=== PATIENT | male | born 1940 | race Caucasian/White ===

== ENCOUNTER 2016-08-04 12:12 | Inpatient (IN) | payer MEDICARE, BC ==
[~2016-08-04] VITALS: Ht 170.2 cm; Wt 67.2 kg
--- NOTE | ~2016-08-04 | DS ---
PATIENT'S NAME: ARCHIE JOHN [facility] AGE: 76 Y [address] ROOM: [id number] [place], [place] [address] LOCATION: [facility] ADMIT DATE: 08/04/2016 Discharge Summary DISCHARGE DATE: FAMILY PHYSICIAN: Reggie Reyes MD ATTENDING PHYSICIAN: Roberta oYst ANTICIPATED DATE OF DISCHARGE: 10/08/2016. FINAL DIAGNOSES: 1. Ischemic cerebrovascular accident, status post tPA with left parietal hemorrhage. 2. Left hemiplegia. 3. Essential hypertension. 4. Coronary artery disease. 5. Encephalopathy, secondary to stroke. 6. Insomnia. 7. C. diff colitis. CONSULTANTS ON THE CASE: 1. Dr. Malik. 2. Dr. Agrawal. HOSPITAL COURSE: Briefly, the patient was admitted to the Transitional Care Unit on the for further treatment of his recent stroke and hemiplegia. The patient was initially brought over on a statin; however, he experienced significant myalgias and it was held going forth. Occupational, Physical, and Speech Therapy continued to work with the patient noting significant progress towards the end of his stay. The patient did have some neuropathic pain and Neurontin was initiated. Lovenox was utilized throughout his stay for DVT prophylaxis. The patient was noted to have some thrush that was adequately treated with nystatin during his stay. The patient did have some hypotension and was given a saline bolus on 08/18/2016 and he rebounded without further repeat of this condition. The patient did have some hyperkalemia. EKG was done with sinus rhythm noted. The patient did have a diagnosis of C. diff on 08/19/2016 and was started on oral vancomycin. The patient did experience some confusion and hallucination and was started on Seroquel. This seemed to help significantly for his encephalopathy. The patient experienced some left shoulder pain. On the , Dr. Cabrera did consult and injected the shoulder, which seemed to resolve his problems. Dr. Agrawal did consult and felt that the patient would be an adequate candidate for inpatient rehab showing notable progress since his admission. After multiple discussions with the family regarding the patient's disposition, it was determined that the patient would transfer to inpatient rehab on 10/08/2016. DIAGNOSTICS: Laboratory data on September 29 sodium was 136, potassium 4.2, PATIENT'S NAME: ARCHIE JOHN [facility] AGE: 76 Y [address] ROOM: [id number] [place], [place] [address] LOCATION: [facility] ADMIT DATE: 08/04/2016 Discharge Summary DISCHARGE DATE: FAMILY PHYSICIAN: Reggie Reyes MD ATTENDING PHYSICIAN: Roberta Yost chloride 101, bicarb 26, glucose 94, BUN 22, creatinine 1.1, potassium went from 5.6, down to 4.6, and on down to 4.2 on September 29. White blood cell count on 08/11/2016 was 6.8, hemoglobin 11.7, hematocrit 35.5, platelets were 357, hemoglobin kentrell to 12.2 on September 21. Urinalysis on August 31 was negative for any pyuria or hematuria. Urine culture showed contaminants on August 31. Stool was positive for C. diff on 08/19/2016. DISCHARGE INSTRUCTIONS: The patient is discharged to inpatient rehab under the care of Dr. Agrawal. Dr. Malik and hospitalist will consult. Diet is regular. Activity is weightbearing as tolerated. Continue with occupational, physical, and speech therapies. The patient's rehab potential is fair. Discharge potential is fair. The patient and family are aware of his condition and prognosis on discharge. DISCHARGE MEDICATIONS: 1. Aspirin 81 mg daily. 2. Lovenox 40 mg daily. 3. Lisinopril 2.5 mg daily. 4. Protonix 40 mg daily. 5. Metamucil 1 packet twice daily. 6. Seroquel 25 mg at bedtime. 7. Flomax 0.4 mg daily. 8. Keppra 500 mg twice daily. 9. Tylenol 650 mg rectally every 4 hours as needed. 10. Tylenol 650 mg every 4 hours as needed. 11. [place] 5/325 1 tablet every 6 hours as needed. 12. Artificial Tears ointment apply small amount to the eyes as needed. 13. Dulcolax suppository 10 mg rectally daily p.r.n. 14. Anusol HC suppository 1 at bedtime p.r.n. 15. Anusol HC cream applied to rectal area 3 times daily as needed. 16. Milk of mag 30 mL daily p.r.n. 17. Nitroglycerin 0.4 mg sublingual as needed for chest pain. 18. Seroquel 12.5 mg p.o. every 12 hours as needed for confusion or agitation. 19. Spiro nasal spray 2 sprays to each nostril as needed. 20. Swim-EAR drops 3-4 drops to the affected ear as needed for pain. We do appreciate participating in this patient's care and thank you very much for the ability to serve him while hospitalized at [facility]. Time spent coordinating details of discharge was 37 minutes of which was spent coordinating with consulting physicians and Care Management, completion of medication reconciliation, and education to the patient and family on the above mentioned diagnoses. PATIENT'S NAME: ARCHIE JOHN [facility] AGE: 76 Y [address] ROOM: [place] [address] LOCATION: [facility] ADMIT DATE: 08/04/2016 Discharge Summary DISCHARGE DATE: FAMILY PHYSICIAN: Reggie Reyes MD ATTENDING PHYSICIAN: Roberta Yost NATALI SANTIAGO FOR ANABELL BANUELOS MD MARGUERITE/modl /[id number] d: 10/08/16 0350 t: 11/03/16 0423, DISCHARGE SUMMARY
--- NOTE | ~2016-08-04 | CON ---
PATIENT'S NAME: ARCHIE JOHN [facility] AGE: 76 Y [address] ROOM: [place] [address] LOCATION: [facility] ADMIT DATE: 08/04/2016 Consultation DISCHARGE DATE: FAMILY PHYSICIAN: Reggie Reyes MD ATTENDING PHYSICIAN: ANNI SEPULVEDA REFERRING PHYSICIAN: Deb Malik MD ORTHOPEDIC CONSULT CHIEF COMPLAINT: Left shoulder pain. HISTORY: This 76-year-old male has had a 5-year history of pain and stiffness in his left shoulder. It has been much worse the past week. He is currently on rehab, receiving physical therapy, recovering from a hemorrhagic stroke with left hemiplegia. Pain is dull and achy, radiates out of the deltoid. Hurts when his arm is moved, although he can not do much passively. When others move it, it hurts. Occupational Therapy has been working with the shoulder but can not do too much as long as it hurts. PAST MEDICAL HISTORY: Left carotid artery disease, coronary artery disease, essential hypertension, elevated cholesterol. SURGICAL HISTORY: Cholecystectomy, CABG. SOCIAL HISTORY: Lives with his of 58 years. No smoking or alcohol use. FAMILY HISTORY: Mother in her 90s of old age and Alzheimer's dementia. Father in his 80s from heart trouble. CURRENT MEDICATIONS: He takes: 1. Aspirin 81 mg daily. 2. Flomax. 3. Keppra. 4. Lovenox. 5. Metamucil. 6. Nystatin. 7. Prinivil. 8. Protonix. 9. Seroquel. PATIENT'S NAME: ARCHIE JOHN [facility] AGE: 76 Y [address] ROOM: [place] [address] LOCATION: [facility] ADMIT DATE: 08/04/2016 Consultation DISCHARGE DATE: FAMILY PHYSICIAN: Reggie Reyes MD ATTENDING PHYSICIAN: ANNI SEPULVEDA 10. Lacri-Lube. 11. Nitrostat. 12. [place]. 13. Nasal spray. 14. Tylenol. ALLERGIES: HE REPORTS AN ALLERGY TO TITANIUM. REVIEW OF SYSTEMS: No recent coughs, colds, fevers, chills, or sore throats. No chest pain, shortness of breath, or trouble breathing. No nausea, vomiting, diarrhea, or constipation. No dysuria, hematuria, hesitancy, incontinence. He is constipated. He is little depressed from the stroke. No skin changes. No auditory or visual hallucinations. PHYSICAL EXAMINATION: GENERAL: He is awake, alert, and oriented x3. Mood and affect appropriate. VITAL SIGNS: Blood pressure is 152/74, respirations 16, temperature 98, pulse 74 and regular. HEENT: Atraumatic, normocephalic. PERRL. EOMI. TMs clear. Throat clear. No loose teeth. NECK: Supple, nontender. CHEST: Clear to auscultation. HEART: Regular rhythm. ABDOMEN: Soft, nontender without masses. EXTREMITIES: He has full active range of motion of right shoulder, hip, and knee. No active motion of the left shoulder, elbow, or hand. Minimal use of left lower extremity. He has mild tenderness in the subacromial area. Passive abduction and flexion are 80 degrees in the left shoulder with pain. There is some crepitus. RADIOLOGY DATA: X-rays of the left shoulder show degenerative arthritis. IMPRESSION: 1. Rotator cuff arthropathy, left shoulder. 2. Hypertension. 3. Coronary artery disease. 4. Status post hemorrhagic stroke with left hemiplegia. 5. Depression. 6. Dyslipidemia. PLAN: Risks and benefits were discussed with the patient and his . Time-out was PATIENT'S NAME: ARCHIE JOHN [facility] AGE: 76 Y [address] ROOM: [place] [address] LOCATION: [facility] ADMIT DATE: 08/04/2016 Consultation DISCHARGE DATE: FAMILY PHYSICIAN: Reggie Reyes MD ATTENDING PHYSICIAN: ANNI SEPULVEDA. Left shoulder was sterilely prepped and injected into the subacromial space and glenohumeral joint with 80 mg Depo-Medrol, 5 mL 1% lidocaine. He may continue with occupational therapy for the left shoulder. Take Tylenol for pain. I will follow him along and see how he responds to the injection. MD EMMANUEL PATE/brandy /[id number] d: 09/14/16 2220 t: 09/29/16 1003, CONSULTATION REPORT
--- NOTE | ~2016-08-04 | DS ---
PATIENT'S NAME: ARCHIE JOHN [facility] AGE: 76 Y [address] ROOM: [address] [place] [address] LOCATION: [facility] ADMIT DATE: 07/23/2016 Discharge Summary DISCHARGE DATE: 08/04/2016 FAMILY PHYSICIAN: Reggie Reyes MD ATTENDING PHYSICIAN: Zoila Cid ATTENDING PHYSICIAN ON THE DAY OF TRANSFER: Roberta Yost M.D. CONSULTING PHYSICIANS: 1. Deb Malik M.D., Neurosurgery. 2. Som Agrawal M.D., Physiatry. DISCHARGE DIAGNOSES: 1. Ischemic cerebrovascular accident status post tPA. 2. Parietal lobe hemorrhage status post evacuation. 3. Hypertension, essential. 4. Left-sided hemiplegia. 5. Coronary artery disease. 6. Chronic shoulder and hip pain. 7. Anxiety. 8. Dyslipidemia. DISCHARGE MEDICATIONS: 1. Hydrochlorothiazide 12.5 mg p.o. q.a.m. 2. Lisinopril 20 mg p.o. q.a.m. 3. Artificial Tear ointment to left eye p.r.n. dry eye. 4. ASA 81 mg p.o. daily. 5. Levetiracetam 500 mg p.o. b.i.d. 6. Lisinopril 5 mg p.o. daily. 7. Nystatin swab to affected area t.i.d. 8. Protonix 40 mg p.o. daily. 9. Flomax 0.4 mg p.o. q.p.m. 10. Ambien 5 mg p.o. q.h.s. 11. Tylenol 650 mg rectally q.4 hours p.r.n. pain or fever. 12. [place] 5/325 mg one tab every 6 hours p.r.n. pain. 13. Milk of magnesia 30 mL p.o. b.i.d. p.r.n. constipation. 14. Nitroglycerin 0.5 mg sublingually as needed p.r.n. chest pain. PROCEDURES: Right frontal craniotomy and evacuation of intracranial hemorrhage on July 23, [address] Malik. Please see his op note for more detailed review. PERTINENT LABORATORY DATA: Lipid panel drawn on July 24, 2016 showed cholesterol of 223, triglycerides of 150, HDL 53, VLDL 30, LDL 140. The patient initially had some acute kidney injury with a GFR of 42, which recovered nicely to greater than 60 by July 25, 2016. Creatinine on PATIENT'S NAME: ARCHIE JOHN [facility] AGE: 76 Y [address] ROOM: [place] [address] LOCATION: [facility] ADMIT DATE: 07/23/2016 Discharge Summary DISCHARGE DATE: 08/04/2016 FAMILY PHYSICIAN: Reggie Reyes MD ATTENDING PHYSICIAN: Zoila Cid admission was 1.6 which drifted downward to a gustavo of 1.0. Electrolytes were really unremarkable throughout his hospitalization. Hemoglobin at admission was 13.7 which drifted down to the gustavo of 10.4. HOSPITAL COURSE: Please refer to the admitting dictation by Dr. Cid for more detailed outline of the patient's presentation, and also review the consultation notes from Dr. Agrawal along with Dr. Simon, Neurology, and also Dr. Malik, Neurosurgery. The patient presented to the local ER with hemianopsia on the left eye as well as left leg weakness within [address] onset[address] Dr. Simon was then notified and discussed, and the patient did receive tPA at that facility. He was then sent to a higher level of care for his post tPA and stroke-like symptoms. The patient did have some mild weakness on the left upon presentation to our facility. Dr. Simon of course was consulted. The patient does have essential hypertension and our goal initially was permissive hypertension less than 180 and the patient was started on normal saline given his acute kidney injury upon admission. Shortly after Dr. Simon seeing the patient 15 to 20 minutes, the patient developed worsening weakness in the left upper extremity and complete left eye hemianopsia and some slight facial droop. A MRI was obtained at that point which showed interval development of a large round area of acute hemorrhage at the right parietal lobe, associated mass effect was seen. The patient underwent a craniotomy with Dr. Malik on July 23, 2016. MRI was repeated on July 24, 2016 and showed the changes in the right frontal craniotomy and partial evacuation of the large right frontal parietal hematoma. The patient also had insertion of the ICP monitor at the time of craniotomy. The patient was in ICU and clinical care helped manage the patient there. The patient was given p.r.n. IV hydralazine and labetalol for systolic blood pressures greater than 160. The patient was placed on Keppra 500 mg p.o. b.i.d. for seizure prophylaxis. Dr. Quach assisted in his care in the ICU unit. He helped to manage time in the ICU and vent management. A Dobhoff was ultimately placed on July 25, 2016. Dr. Golden also helped care for the patient in ICU assuming care from Dr. Quach. There was concern for DVT and therefore a lower extremity Doppler was checked which was indeed negative. Ultimately the patient was extubated stable and okay to transition to neurotrauma on July 28, 2016. The patient continued on tube feedings at that point, and therapies began to work with the patient. The patient did have some leukocytosis and procalcitonin were monitored which never were impressively elevated. The patient was covered with Zosyn from July 28, 2016 to July 30, 2016. As his white count had bumped to 14.8. The patient continued to slowly improve. The Zosyn was ultimately discontinued on July 30, 2016. The patient was also on Florastor for GI prophylaxis. Speech therapy eval with a modified barium study. The patient did have episodes of anxiety during the overnight stages where he would wake up, and be anxious to visit with his . Ativan 0.25 mg were used very sparingly, which did seem to make him slightly sedated. PATIENT'S NAME: ARCHIE JOHN [facility] AGE: 76 Y [address] ROOM: [address] [address] LOCATION: [facility] ADMIT DATE: 07/23/2016 Discharge Summary DISCHARGE DATE: 08/04/2016 FAMILY PHYSICIAN: Reggie Reyes MD ATTENDING PHYSICIAN: Zoila Cid The patient continued to improve and ultimately was upgraded to a soft mechanical food, thin liquid diet on August 02, 2016 following MBS. We continued to work on blood pressure management. The patient did have a complaint of chronic discomfort in his bilateral shoulders and low back and hips. Again this is not new. [place] 5/325 mg one tab every 6 hours was given and seemed to be effective for this. The Dobhoff was ultimately discontinued on August 03, 2016 as the patient was taking in oral. The patient also complained of getting up to void throughout the night which is also chronic, Flomax was initiated on August 03, 2016. Lisinopril was bumped slightly from 20 mg to 25 mg daily on August 03, 2016 and the patient was able to transfer to the TCU Unit on August 04, 2016 to continue with therapies with the ultimate goal of becoming a rehab candidate. Dr. Agrawal assessed the patient while here and will be following along in assessing intermittently for when the time may be appropriate. On the day of discharge, the patient's vital signs were stable. Temp was 98.0, pulse was 84, respirations 16, blood pressure was 116/58, and he was 95% on room air. The patient was up to the chair on the day of discharge, did have left hemiplegia. His chest was clear to auscultation. He had regular rhythm and rate cardiovascularly. His abdomen was soft and nontender. He was stooling. Extremities had no edema nor calf tenderness. The patient did have foot drop boots in place. Niya were also removed from the craniotomy site on the morning of August 04, 2016. The patient is discharged to the Transitional Care Unit where he will continue on his current diet of thin liquids, mechanical soft food, meds with applesauce. He should continue with OT, PT, and Speech Therapy. O2 may be used to keep sats greater than 90% as needed. He will be followed by the Hospitalist Service along with Dr. Malik in terms of Neurosurgery, Dr. Simon in terms of Neurology, and Dr. Agrawal. This discharge took greater than 35 minutes along with coordination of his care on the day of his discharge. DEBBIE STANTON PA-C FOR MD SAMANTHA STRATTON/brandy /[id number] PATIENT'S NAME: ARCHIE JOHN [facility] AGE: 76 Y [address] ROOM: [address] [address] LOCATION: [facility] ADMIT DATE: 07/23/2016 Discharge Summary DISCHARGE DATE: 08/04/2016 FAMILY PHYSICIAN: Reggie Reyes MD ATTENDING PHYSICIAN: Zoila Cid CC: MD Som Albright MD Jason R Mallin, MD Adeleke E Badejo, MD d: 08/05/16 0118 t: 10/11/16 1451, DISCHARGE SUMMARY
[~2016-08-04 12:12] MED LIST: ACTIGALL300 M1 PO; ASPIRIN EC81 MG PO; LISINOPRIL-HCT1 EAC1 PO; NITROSTAT0.4 MG SL; NORCO 5-325 MG1 TAB PO
--- NOTE | 2016-08-04 19:16 | NUR ---
D: Nursing admission I: Nursing interventions provided to support the patient's individual plan of care R: MOBILITY-- full lift, staff to reposition q 2 hours, wedge and pillows NUTRITION-- soft diet thin liqhids, crush meds applesauce SKIN/INCISIONS/WOUNDS-- top of head, incision healing cindy out SELF CARES-- staff to provide all cares BOWEL/BLADDER-- appears to have some continence bowel and bladder RESPIRATORY-- no oxygen in use PAIN-- chronic right neck and shoulder PSYCHOSOCIAL-- pleasent and cooperative COGNITION-- oriented x3 SPECIAL NEEDS-- leg pumps and foot drop boots, edema glove left hand BLEEDING-- no anticoagulants upon admission- hemmoragic and ischemic stroke SENSORY IMPAIRMENTS/DENTAL NEEDS: left eye visual decreased. own teeth TEACHING NEEDS-- INFECTION CONCERNS:none RISK FOR ELOPEMENT: none NEED FOR BED/MOVEMENT ALARM:yes DISMISSAL PLANS: ? Other: P: Current plan of care reviewed and updated 08/04/16 Serina Yeh rn
--- NOTE | 2016-08-05 02:02 | NUR ---
Significant Event: A/Ox3. VSS. 2A full lift. 1:1 assistance with eating: soft diet and think liquids. Medications need to be crushed in applesauce. L)side flaccid. Head incision open to air. [place] at hs. Frequent repositioning with wedge pillow. Follow up:
--- NOTE | 2016-08-05 13:51 | NUR ---
Significant Event: Patient alert. Up with 2 assist. Left side is weak. Left facial droop. Incision to head is healed. Sling on to left upper extremity with transfers. Needs assistance with meals. Medications with applesauce. at bedside. Follow up:
--- NOTE | 2016-08-05 16:22 | NUR ---
A/O x 3. L side facial droop. Gag reflex intact. States he is unable to focus eyes and see me. +Nystagmus greater on the R eye, sluggish but +nystagmus on the L eye. Meds given with applesauce. 1 on 1 with all meals. L side flaccid. SCD's for VTE. Mechanical soft diet. Thin liquids. No edema. Fatigued easily. [place] response is sometimes slow but is mostly clear and not slurred for me today. No abrupt sudden abnormal responses or behavior. Continent of B/B.
--- NOTE | 2016-08-06 01:05 | NUR ---
Significant Event: Became confused at bedtime. Stated he did not know where he was or where his was. Reoriented. L) side flaccid with a left facial droop. Slow to answer questions. Repo q 2 hrs. Foot drop boot to L) leg. Incontinent of bowel and bladder. SL to R) arm. [place] and tylenol given for c/o neck and back pain. K-pad used for additional relief. Meds given crushed in applesauce. VSS. Afebrile. Pleasant and cooperative w/ cares. Follow up:
--- NOTE | 2016-08-06 11:32 | NUR ---
76 y/o [place] from [place] admitted to TCU on 08-04-16 for continued OT/PT/ST post dx of r) front ICH. He had surgery on 07-23-16 to evacuate the hematoma. Patient is followed by , , and hospitalists. 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 They have one adopted son who is 46 y/o and lives in [place]. states they have 4 grandchildren, with one of them being adopted from [place]. patient has medicare and a supplementla policy. SW reviewed how medicare coverage works on acute care, TCU/SNF and inpatient rehab. acknowledged understanding. She states they do have a LTC policy and their son is looking for it. Explained to if they have an elimination period for their LTC policy, TCU days could go toward the elimination period, once they initiaite a claim. patient currently is a 2 assist, full lift. He is 1:1 with meals, mechanical soft diet. L) side is flacid. wears an edema glove on L) hand and foot drop boots. KPAD to lower back. at team meeting yesterday, we estimated at least a month on TCU with eventual d/c goal to transfer to Inpatient Rehab at [facility].
--- NOTE | 2016-08-06 17:53 | NUR ---
Significant Event: Patient alert but forgetful. 2 assist full lift. Has chronic back and hip pain. Meds with applesauce 1 at at time. Left side is flaccid. Left edema glove. Foot drop boots. Incontinent of urine. Taking [place] for pain. Has left facial droop. at bedside. Follow up:
--- NOTE | 2016-08-07 05:09 | NUR ---
Significant Event: AT 0453, PATIENT GIVEN NORCO TAB ONE FOR BILATERAL HIPS DISCOMFORT RATE AT A 8. BEEN REPOSITIONED. Follow up:
--- NOTE | 2016-08-07 15:46 | NUR ---
Significant Event: Alert/oriented. Forgetful at times. Slow to follow tasks/answer questions. q2 turns when in bed. Left side flaccid, edema glove put on this am. Incontinent of urine. MOM and suppos given today, no results so far. Follow up:
--- NOTE | 2016-08-08 14:29 | NUR ---
Significant Event: Alert to person and place. Confused at times. Repo q 2 hrs. Up in chair for breakfast. Has c/o pain to buttocks when up. norco 1 tab given for pain. Resting comfortably after interventions. IV SL. meds given crushed in applesauce. helped to eat meals. Has had family at bedside t/o the day. Pleasant and cooperative w/ cares. Follow up:
--- NOTE | 2016-08-09 04:58 | NUR ---
A/O x 3. Pleasant. Cooperative. Spouse at bedside till 2129. C/O back pain and L hip pain. Medicated as per orders. Bed bath completed. Turn q 2 hr. Medications crushed and put in applesauce. Watch for pocketing which patient does frequently. [place] water protocol in progress. SCD's in use. Incontinent of B/B. L side flaccid. AFO boots on at HS. Medicated for pain this morning for c/o of L hip pain.
--- NOTE | 2016-08-09 17:40 | NUR ---
Significant Event: Follow up: Patient remain resting in bed all day, turned q2 hours by staff. Incontinent of urine, moisture cream to bottom. Medications crushed and used with applesauce. Soft foods with nectar thick liquids, thin liquids between meals. norco last 1700. left side flaccid. family at bedside , assisting patinet with eating.
--- NOTE | 2016-08-10 04:38 | NUR ---
Significant Event: Pt a/o x 3, cooperative, forgetful. C/o l) hip pain; pain relief noted after Ambien given at HS. Meds crushed in applesauce. Turns q 2 hrs. Foot drop boots and pneumatic devices on at HS. Follow up:
--- NOTE | 2016-08-10 10:55 | NUR ---
Significant Event: Cares performed from [id number]. Alert. Confused at time. Was very tired this am. had to encourage to take medications. Pills crushed in applesauce. IV SL. [place] given PRN pain. UP with full lift. Incontinent of bowel and bladder. Repo q 2 hrs. Pleasant and cooperative w/ cares. Follow up:
--- NOTE | 2016-08-10 14:10 | NUR ---
brought in LTC policy. 60 day elimination period, covers $200 per day, unlimited lifetime. [facility] [address] [address] [facility] [place] [address] fax [phone] SW began claim form and gave to daughter in law as left to get some fresh air. Family aware to submit policy, once he is discharged from TCU and # of SNF days known. Phone # for business office to obtain an itemized monthly statement from TCU left with claim form and family aware they will need to call to get an itemized copy of bill, and then mail off with the claim form, plan of care, OT/ST notes and admit orders.
--- NOTE | 2016-08-11 02:47 | NUR ---
Significant Event:ALERT TO SELF, DISORIENTED TO TIME/PLACE, EASILY REORIENTED. NO IV ACCESS, UP WITH TWO ASSIST, FULL LIFT. L) SIDED WEAKNESS. MEDS CRUSHED IN APPLESAUCE. EDEMA GLOVE TO L) HAND AT ALL TIMES, ELEVATE ON PILLOW. PRN NORCO AT 2101. TURN Q 2HOUR, INCONTINENT OF URINE, MOISTURE BARRIER CREAM APPLIED. NECTAR THICKENED LIQUIDS. PLEASANT AND COOPERATIVE WITH CARES. Follow up:
[2016-08-11 05:36] LABS: BASOPHIL # 0.1 K/uL (0.0-0.2); BASOPHIL % 0.7 %; EOSINOPHIL # 0.4 K/uL (0.0-0.5); EOSINOPHIL % 5.9 %; HEMATOCRIT 35.5 % (37.0-53.0); HEMOGLOBIN 11.7 g/dL (11.0-16.0); IMMATURE GRANULOCYTE % 0.3 %; LYMPHOCYTE # 2.2 K/uL (0.8-4.0); LYMPHOCYTE % 31.7 %; MCH 32.2 pg (27.0-34.0); MCV 97.8 fl (83.0-98.0); MONOCYTE # 0.8 K/uL (0.0-1.0); MONOCYTE % 11.3 %; MPV 9.8 fl (9.4-12.4); NEUTROPHIL # (ANC) 3.4 K/uL (1.4-9.0); NEUTROPHIL % 50.1 %; NRBC % 0 /100WBC (0-0.00); RBC 3.63 M/uL (3.50-5.50); RDW-CV 12.5 % (11.9-14.6); WBC 6.8 K/uL (4.0-11.0)
[2016-08-11 05:43] LABS: PLATELET COUNT 357 K/uL (150-450)
[2016-08-11 05:51] LABS: ALBUMIN 3.1 gm/dL (3.5-5.0); CALCIUM 8.7 mg/dL (8.5-10.5); CREATININE 2.4 mg/dL (0.6-1.3); PHOSPHORUS 4.4 mg/dL (2.5-4.9)
[2016-08-11 05:52] LABS: MAGNESIUM 2.7 mg/dL (1.3-2.6)
--- NOTE | 2016-08-11 16:26 | NUR ---
Significant Event:A/0 X 3, C/O HIP PAIN- RELIEF WITH REPOSITIONING AND MEDICAITON, PT/OT/ST SERVICES, SODIUM LOW THIS AM 132- *NEW ORDER FLUID RESTRICTION 1500 RECHECK BMP IN AM*, FULL LIFT TRANSFERS, COMMODE FOR BM, AND GRANDAUGHTER AT BEDSIDE, PILLS CRUSHED IN APPLESAUCE, Follow up:
--- NOTE | 2016-08-12 02:56 | NUR ---
Significant Event:A/O some forgetfulness.2a/FL. Turn q2H. Left side flaccid. Foot drop boots on bilaterally. Calf pumps bilaterally on. Edema glove removed at HS, washed. Hands cleansed and lotioned. Aloe to buttocks/rectal area with cares. BMs this shift. Some incontinence of bladder. Fluid restriction of 1500ml/day. Meds crushed in applesauce. Call button within reach, clipped to pocket of gown. Miralax initiated this shift. [place] @ 1942; relief noted. Follow up:
[2016-08-12 04:56] LABS: CALCIUM 8.7 mg/dL (8.5-10.5); CREATININE 2.5 mg/dL (0.6-1.3)
--- NOTE | 2016-08-12 11:17 | NUR ---
Significant Event: ALERT/ ORIENT X 3, C/O HIP PAIN WHEN UP FOR TOO LONG. INC B/B. EDEMA GLOVE TO L)HAND, NETO HOSE TO BILATERAL LEGS, GAVE 1 NORCO AT 0800 FOR PAIN. FULL LIFT TRANSFERS, USES BEDSIDE COMMODE, SODIUM THIS AM 131. 2000ML FLUID RESTRICTION, FOOT DROP BOOTS WHILE IN BED, BILATERAL LEG PUMPS, L)SIDE FLACID. *NEW ORDER TODAY FOR NYSTATIN SWISH AND SPIT FOR THRUSH. QID FOR 10 DAYS.* AT BEDSIDE. PT/OT/ST SERVICES. Follow up:
--- NOTE | 2016-08-13 02:31 | NUR ---
Significant Event:PT IS A & O, UP WITH FULL LIFT. IS ON 2000ML FLUID RESTRICTIONS. LEFT SIDE IS FLACCID. MEDS CRUSHED IN APPLESAUCE, USES A STRAW TO SUCK UP LIQUID MEDS. NO IV ACCESS. TOOK A [place] @ 2042. VSS ON RA Follow up:
--- NOTE | 2016-08-13 12:02 | NUR ---
this week teams meeting indicate patient making progress. worked in the w/c with OT. Needs extra time and cues to process but making progress. 1999 fluid restriction diet. soft diet. start nystatin this week. continue with OT/PT/ST and eventual d/c plan to [facility].
--- NOTE | 2016-08-13 19:37 | NUR ---
Significant Event: Follow up: UP to chair with therapy, back to full lift by nursing. Dr Cordero changed several medications due to low BP today. given norco this afternoon for c/o hip pain. Many family members visited this afternoon and patient is very tired afterwards. assisting to feed patient. Eats very poorly.
--- NOTE | 2016-08-14 05:21 | NUR ---
Confused to time. Short term memory deficit noted greater tonight. States worried about spouse and that he had not seen her all day but spouse has been with patient all day with mx visitors until 2029. Medicated for pain at HS per patient c/o pain. Total care. Turn q 2hr. Rested well.
--- NOTE | 2016-08-14 15:44 | NUR ---
Significant Event:A/O. 2A/FL. Left side flaccid, left mouth droop. Calf pumps and foot drop boots. [place] @ 1205 for hip pain, relief noted. Turn Q2H. at bedside. Thin liquids in between meals. Thick liquids with meals. Meds crushed and given in applesauce. Call light within reach. Follow up:
--- NOTE | 2016-08-15 02:41 | NUR ---
Significant Event: Alert & oriented. rt side is flaccid. Takes meds crushed in applesauce. Has bilateral foot drop boots. Turn every 2 hrs. Has bilateral calf pumps. VSS. Had [place] @ 1925. Incontinent at night. Has lt side mouth droop. Has thickened liquids with meals only and a 2000 ml fluid restriction. Follow up:
--- NOTE | 2016-08-15 05:32 | NUR ---
Pt requests bilateral foot drop boots off. Boots removed.
--- NOTE | 2016-08-15 12:41 | NUR ---
Significant Event: Alert and oriented. Forgetful at times. UP with full lift. Repo q 2 hrs in bed. Incontinent of urine. Did c/o of feeling constipated today. Last BM on 08/12. MOM given. Passing gas, but no BM as of yet. NO IV access. Pills given crushed in applesauce. [place] given for pain. Nystatin swishes and Diflucan given for thrush. at bedside t/o shift. Pleasant and cooperative w/ cares. Follow up:
--- NOTE | 2016-08-16 01:16 | NUR ---
Significant Event: Alert & oriented. Speaks slowly. Lt side flaccid. Turns every 2 hrs. Had 2 bm's last night, a large and small so far. Still needs MOM. I could feel stool high up. Needs meds crushed in applesauce. Wears calf pumps. Continues with nystantin swish . VSS. Wears TEds. Takes NOrco for pain. Incontinent of bowel & bladder on nights. Follow up:
--- NOTE | 2016-08-16 14:27 | NUR ---
Significant Event: Alert and oriented. Forgetful at times. UP w/ full lift. Working on 2 assist pivot w/ therapy. Left side flaccid. Edema glove to left hand. Patient was very tired this am. Did have norco prior in early am. BP 91/48. C/o constipation. MOM and supp repeated today. Did have 2 mushy bms today. Also some liquid stool noted. Cont on nystatin and diflucan for thrush. Meds crushed in applesauce. Pleasant and cooperative w/ cares. Follow up:
--- NOTE | 2016-08-17 01:18 | NUR ---
Significant Event: Alert & oriented. Lt side of body is flaccid and unable to move. He is pleasant & cooperative. is very involved with his cares. He had hyperbowel sounds last night. BP was 108/62. He wears NETO hose/leg pumps. He had Tylenol @ 1900 for a headache. Meds are crushed and given in applesauce. PT is working with him. Incontinent & wears briefs. His helps him with the urinal @ x's during the day. Follow up:
[2016-08-17 07:16] LABS: ALBUMIN 3.1 gm/dL (3.5-5.0); CALCIUM 8.8 mg/dL (8.5-10.5); CREATININE 3.4 mg/dL (0.6-1.3); PHOSPHORUS 4.7 mg/dL (2.5-4.9)
[2016-08-17 07:22] LABS: ANION GAP 14.6 (10.0-19.0); MAGNESIUM 3.3 mg/dL (1.3-2.6); POTASSIUM 5.6 mMol/L (3.7-5.1)
--- NOTE | 2016-08-17 17:10 | NUR ---
Significant Event: Patient alert and oriented and is slow to respond to questions at times. L) side of body flaccid. at bedside and assists with cares. [place] 1 tab given at 0737 for c/o L) hip discomfort and Tylenol 650 mg given at 1509 for back discomfort. Patient c/o urge to have a BM and only had a tsp of loose stool this afternoon. BP was 88/45 this morning and his Lisinopril was held. Na+ level at 130 and patient remains on a fluid restriction. Patient had an 500 ml in orally. Follow up:
--- NOTE | 2016-08-18 02:07 | NUR ---
Significant Event: Alert and oriented with some confusion at HS. Slow to respond to questions at times. Left side of body is flaccid and unable to move. Calm and cooperative with cares. Wears NETO hose and SCDs. assist with cares. [place] given at 2010 for C/O pain to left hip with good results. Takes medication crushed in applesauce. Incontinent of B&B. Will ask for and use urinal occasionally. Follow up:
--- NOTE | 2016-08-18 15:38 | NUR ---
Significant Event:A/0 X 3, FULL LIFT TRANSFERS, PT/OT SERVICES- LABS SODIUM 130, POTASSIUM 5.6, *NEW ORDERS EKG, TELEMETRY FOR 24 HOURS, NS 500ML BOLUS THEN 125ML/HR X 8 HOURS THEN 50ML/HR, LABS BMP,MAG AT 1700- CALL RESULTS, RENAL/MAG IN AM, HOLD PRINIVIL. C/O HIP PAIN, USING TYLENOL ONLY FOR PAIN D/T DROWSINESS WITH NORCO- GOOD PAIN CONTROL, AT BEDSIDE, 2000FR, MECHANICAL SOFT DIET, MEDS CRUSHED IN APPLESAUCE. Follow up:
[2016-08-18 17:17] LABS: CALCIUM 8.3 mg/dL (8.5-10.5); CREATININE 1.8 mg/dL (0.6-1.3); MAGNESIUM 2.6 mg/dL (1.3-2.6)
[2016-08-18 17:18] LABS: ANION GAP 14.6 (10.0-19.0); POTASSIUM 4.6 mMol/L (3.7-5.1)
--- NOTE | 2016-08-19 03:56 | NUR ---
Alert. Easily disoriented when leaves for the night. Reoriented mx times. Pleasant. Cooperative. Incontinent of stool x 4. Total care. Turn q 2 hrs. AFO boots on at HS. SCD's on at HS. Medication crushed and put in applesauce because of cheeking of pills and inablility to feel pills on L side of mouth. IVF's infusing at 125ml/hr decreased per orders to 50ml/hr as per MD order. Rested poorly per the frequent BM's and large incontinent voids.
[2016-08-19 07:39] LABS: CALCIUM 8.5 mg/dL (8.5-10.5); CREATININE 1.2 mg/dL (0.6-1.3); MAGNESIUM 2.4 mg/dL (1.3-2.6); PHOSPHORUS 2.5 mg/dL (2.5-4.9)
--- NOTE | 2016-08-19 17:39 | NUR ---
Significant Event:Up in chair with lift. Tylenol given at 1315 per request for restlessness. IV saline locked. Incontinent of urine and bowel. 6 stools today. C diff positive. Placed in isolation. informed. Telemetry dc'd. VSS. Left side flaccid. Avoid eye contact on left side at times. Patient is confused. 1999 fluid restriction. at bedside assist with cares.
--- NOTE | 2016-08-19 18:02 | NUR ---
TCU TEAM MEETING PATIENT PROGRESSING, RECEIVING OT/PT/ST. HAD LABWORK YESTERDAY WITH SOME ABNORMAL LABS PER NURSING. DID AN EKG, TELE, NS BOLUS. NURSING TO F/U WITH HOSPITALISTS TO SE IF PATIENT NEEDS TO BE ON FLUID RESTRICTION IF HE REQUIRED IV FLUIDS YESTERDAY. DID NOT SLEEP WELL LAST NIGHT PER THERAPY AND . WORKED ON HAVING A BM AND THEN ALL HIS MEDICAL TESTS YESTERDAY, STATES HE IS TIRED TODAY. CONTINUE ON TCU WITH EVENTUAL D/C PLAN FOR INPATIENT REHAB.
--- NOTE | 2016-08-20 04:27 | NUR ---
A/O x 3. Pleasant. Cooperative. Anxious most of the evening especially after leaves unit. Total care. Turn q 2 hr. Occassionally incontinent of B/B. Medicated for pain of L shoulder and Lower back per request. Isolation for C-diff continued. Rested poorly. Frequently having to re-orient to time and let him know what time his will be back. Patient states that he is afraid at night and is scared but he does not know why....doctor may need to review medication and stop or start a medication to assist with this anxiety. Will continue to monitor and communicate with day shift nurses.
--- NOTE | 2016-08-20 16:55 | NUR ---
Significant Event: Alert & oriented, drowsy but restless. Gave APAP x2 for generalized discomfort. Isolation for C.diff, 3 stools this shift. Pills crushed with applesauce. IV removed, would not flush, family/patient request to not insert new IV. New order for saline nasal spray, ok to keep at bedside.
--- NOTE | 2016-08-20 23:16 | NUR ---
Significant Event:ALERT TO SELF, DISORIENTED TO TIME/PLACE. UP WITH TWO ASSIST, FULL LIFT. NO IV ACCESS. ISO FOR C-DIFF. PRN NORCO AT 2034. PILLS CRUSHED IN APPLESAUCE. INCONTINENT OF BOWEL/BLADDER. L) SIDE FLACCID. TURN Q 2HOUR. FREQUENT REOIENTATION TO TIME/PLACE AND REASSURED IS DOWNSTAIRS SLEEPING. PLEASANT AND COOPERATIVE WITH CARES. Follow up:
[2016-08-21 06:18] LABS: BLOOD UREA NITROGEN 23 mg/dL (6-24); CALCIUM 8.7 mg/dL (8.5-10.5); CHLORIDE 103 mMol/L (96-110); CO2 26 mMol/L (22-32); CREATININE 1.1 mg/dL (0.6-1.3); ESTIMATED GFR (MDRD EQUATION) > 60; PHOSPHORUS 2.4 mg/dL (2.5-4.9); SODIUM 137 mMol/L (135-145)
--- NOTE | 2016-08-21 15:01 | NUR ---
Significant Event: A/0 X 3, FULL LIFT TRANSFERS L) SIDE FLACCID, AT BEDSIDE, INCONTINT BOWELS X 3- FORMED SOFT, INCONTINENT URINE AND USES URINAL 2000ML FLUID RESTRICTION. NO C/O RECTAL PAIN, NOT SLEEPING AT NIGHT ORDERS TO DC AMBIEN PER REQUEST. PRN TYLENOL GIVEN FOR PAIN AT 0800 AND 1300. GOOD PAIN CONTROL UP IN CHAIR FOR MEALS, IN CONTACT ISOLATION FOR CDIFF. Follow up:
--- NOTE | 2016-08-22 02:19 | NUR ---
Significant Event: Alert & oriented. Was awake a lot last night. Has meds crushed in applesauce. VSS. Refused leg pumps. Is on a 2000 ml fluid restriction. Is in isolation for cdiff. Stool was pasty & thick. [place] given at 2100 for rating pain a 2. COntinues swish & swallow as well as anusol cream & suppositories. Turn q 2 hrs. Follow up:
--- NOTE | 2016-08-22 15:03 | NUR ---
Significant Event: Follow up: Passed 3 soft incontinent stools today. isolation for c diff. Eats solid foods in addition to drinking ensure. 2000ml fluid restriction. medications crushed and in applesauce, takes well. Patient has not slept today , did not sleep last night either. tylenol for pain this am. family visit, patient is very alert and talkative today. Annusol cream today per order, bottom looks good.
--- NOTE | 2016-08-23 03:06 | NUR ---
Significant Event:ALERT AND ORIENTED TO SELF, FORGETFUL. UP WITH TWO ASSIST, FULL LIFT. PILLS CRUSHED IN APPLESAUCE. REFUSED LEG PUMPS/FOOT DROP BOOT. 2000ML FLUID RESTRICTION. ISO FOR C-DIFF. TURN Q 2HOURS, PRN NORCO AT 2210. HAS BEEN AWAKE THUS FAR TONIGHT. PLEASANT AND COOPERATIVE WITH CARES Follow up:
--- NOTE | 2016-08-23 14:07 | NUR ---
Significant Event: Pt alert to self, forgetful, cooperative with cares, pleasant. Transfers with full lift. Meds crushed in applesauce. Iso for c-diff. Denies pain. Incontinent; pt's assists with cares. Refused Miralax. Foot drop boots on. Pt made comment to the physical therapist asking how long would it take him to recover from his stroke, and that he was getting depressed because he used to be so active. Working on obtaining some printed education on stroke for pt and family. Follow up:
--- NOTE | 2016-08-24 02:20 | NUR ---
Significant Event:ALERT TO SELF, DISORIENTED TO TIME. UP WITH TWO ASSIST, FULL LIFT. NO IV ACCESS, L) SIDE FLACCID. PILLS CRUSHED IN APPLESAUCE. TURN [id number], PATIENT FINALLY FELL ASLEEP AFTER MINIMAL SLEEP THE LAST THREE DAYS, ALLOWED PATIENT TO REST UNDISTURBED. C[place] CELAY[place] AT 2051. PLEASANT AND COOPERATIVE WITH CARES. Follow up:
--- NOTE | 2016-08-24 13:54 | NUR ---
Significant Event: Alert/oriented. Full lift transfer. Q2 turns. Flaccid left side. VSS. Takes tylenol this am prior to therapy. Meds crushed in . Inc at times. Continues fluid restrict. Isolation for c. diff. at bedside. Tolerates up to chair for meals and w/c this afternoon. Follow up:
--- NOTE | 2016-08-24 14:11 | NUR ---
supportive visit with today. She stated her son wants to meet with me to discuss his SNF days. Explained to he continues to meet SNF criteria with OT/PT/ST. ?? if [facility] would take patient with isolation (c-diff). SW relayed the team is recommending her remain on TCU for continued therapies and eventually go to [facility], but we are not in any hurry to discharge at this time. acknowledged understanding and said she would tell her son. Relayed to that after 20 SNF days, his supplement would kick in.
--- NOTE | 2016-08-24 16:38 | NUR ---
supportive visit with son and from [place]. Many questions about the future and the unknown..... d-i-l will stop at [facility] in [place] and put patients name on their list "just in case". Per son, [facility] is their first preference if their dad would require NH level of care upon d/c from [facility]. son states his parents home is 30 years old, but would need some adaptions, if, his dad would be able to return home. son also mentioned another home in [place] for sale that is barrier free, however at this time, will just wait and see how his dad progresses. son and d-i-l will take measurements of their parents home to share with therapists, when the timing is appropriate. Family aware a home safety eval can be done prior to d/c from [facility], if that is what the team recommends and is appropriate for d/c. Also discussed [facility] for their mom, if, their dad needs to be in a NH upon d/c. Son also stated his dad's LTC policy has an inhome benefit for caregivers. Reviewed medicare criteria and coverage for SNF. Son and d-i-l acknowledged understanding and appreciative of the review of information, that had been given to upon admission. 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
--- NOTE | 2016-08-25 04:40 | NUR ---
Significant Event:ALERT TO SELF, DISORIENTE TO TIME/PLACE AT TIMES. UP WITH TWO ASSIST, FULL LIFT. NO IV ACCESS. PILLS CRUSHED IN APPLESAUCE. 2000ML FLUID RESTRICTION. PRN NORCO ONE TAB AT 0358. L) SIDE FLACCID. CONTININUES ON ISO FOR C-DIFF, STOOLS PUDDY CONSISTANCY. DR. CAMACHO IN TO VISIT THIS EVENING. Q 2 HOUR TURNS, SLEPT OFF AND ON DURING THE NIGHT AND ALLOWED PATIENT TO DO THIS UNDISTURBED D/T LITTLE SLEEP IN THE LAST 3-4 DAYS. PLEASANT AND COOPERATIVE WITH CARES. Follow up:
[2016-08-25 06:49] LABS: ALBUMIN 3.1 gm/dL (3.5-5.0); ANION GAP 14.2 (10.0-19.0); CALCIUM 8.7 mg/dL (8.5-10.5); CREATININE 1.2 mg/dL (0.6-1.3); MAGNESIUM 2.4 mg/dL (1.3-2.6); PHOSPHORUS 3.9 mg/dL (2.5-4.9); POTASSIUM 4.2 mMol/L (3.7-5.1)
--- NOTE | 2016-08-25 13:41 | NUR ---
Significant Event: Alert, pleasantly disoriented to date/time. VSS. Full lift transfer. Left side flaccid. Tylenol this am prior to therapies. Crushed meds in . Fluid restriction and accurate I/O. at bedside. Follow up:
--- NOTE | 2016-08-26 02:27 | NUR ---
Significant Event: Alert to self and person disoriented to time and place. Up with 2 assist full lift. No IV access. Pills crushed in applesauce. does not want him to have NARCO. 2000ml fluid restriction. Flaccid to left side. Isolation precautions for C-diff. Q2 hour turns. Did not sleep at all this shift. Follow up:
--- NOTE | 2016-08-26 16:35 | NUR ---
tcu team meeting. therapy reports patient making slow progress. indicate thinks her is tired and could benefit from uninterrupted sleep. therapists to meet with and come up with a schedule where no therapy or nursing interrupts patient and post a time on the door, so he can get a good rest break during the day. when patient out of c-diff isolation, plan to move to room 3340 with an overhead lift.
--- NOTE | 2016-08-26 19:23 | NUR ---
Significant Event: Kate bedside most of day, helpful with cares. VSS. Tylenol X2 for left shoulder pain with relief. Incontinent formed BM several times today. Per Yadira patient will likely be able to come out of C Diff precautions tomorrow if stools remain formed. Incontinent of urine at times, uses urinal as well. Will start having rest time between 11:00and 1:30 daily to help him rest between therapies. Melatonin to be given HS for trouble sleeping. Follow up:
--- NOTE | 2016-08-27 04:26 | NUR ---
Significant Event: Alert to person and disoriented to time and place tonight. Repositioned frequently from side to side. Patient can be incontinent at times. 2A full lift for transfers. L)side flaccid. Contact isolation for c.diff and patient to come out of isolation today (no stools during this shift). Patient had difficulty sleeping and states he feels worried. Tylenol given for pain. Follow up:
--- NOTE | 2016-08-27 15:23 | NUR ---
Significant Event: Alert and oriented. L) side flacid. Showered and moved out of c-diff isolation. Up with full lift. No c/o pain today. Cont on Oral vanco. Did have mod formed bm today. pills given crushed in pudding. and grandaughter have been at bedside t/o shift. Pleasant and cooperative w/ cares. Follow up:
--- NOTE | 2016-08-28 00:57 | NUR ---
Significant Event: Patient received in room. Patient forgetful at night. Incontinent at times. NO IV access. Meds crushed in applesauce. at bedside. Tylenol po given at hs. VSS and on RA. Up with lift. SUpport/teaching provided. Call light within reach. Follow up:
--- NOTE | 2016-08-28 13:39 | NUR ---
Significant Event: Alert and oriented. Forgetful at times. Up with full lift. Incontinent of stool. No c/o pain. Refused edema glove. States slept better last night after taking benadryl. Meds given crushed in pudding. Follow up:
--- NOTE | 2016-08-29 02:05 | NUR ---
Significant Event: Patient received in room. Patient up to with lift. Right sided weakness. Meds crushed in applesauce. Patient confused at hs. Bed alarm on. Urinal but incontinent at times. NO IV access. Support/teaching provided.Call light within reach. Follow up:
--- NOTE | 2016-08-29 15:02 | NUR ---
Significant Event: Alert and oriented. Forgetful at times. Up w/ full lift. L) side flaccid. Refused edema glove. Meds given crushed in pudding. PRN nasal spray given. Also took tylenol x1 for left shoulder pain. Was unable to take a nap today. Has anxiety when is not at bedside. 6 loose bms noted today. Called to Dr. Cason. Re-started in contact isolation for c-diff. Cont on PO vanco. Dr. cason to round later today. Follow up:
--- NOTE | 2016-08-30 04:31 | NUR ---
Significant Event: PATIENT IS FLACCID TO LEFT SIDE. UP WITH LIFT. MEDS CRUSHED IN APPLESAUCE. PATIENT IS CONFUSED BUT PLEASANT. NO IV. REFUSING EDEMA GLOVE. TOOK TYLENOL AND BENEDRYL AT HS. ISOLATION FOR C.DIFF. DIFLUCAN STOPPED. LOVENOX TO BE STARTED. Follow up:
--- NOTE | 2016-08-30 15:34 | NUR ---
Significant Event: Pt a/o x 3, cooperative with cares, forgetful. Flaccid on L) side. Up with full lift. Incontinent of stool, BMs are not liquid, but soft and unformed with foul odor. Buttocks reddened, vaseline applied per pt request. Meds crushed in apple sauce. No IV access. Edema glove on. Does c/o l) shoulder pain; did massage shoulder for him and he said it felt better. Pt at 1325 c/o hallucinations; states he saw bugs crawling on the corner wall of his room. Pt's feels it is the vancomycin. Phoned Dr. Cordero; she explained that it was most likely the melatonin and d/c'd it. Explained this to and pt; they both voiced understanding. Also his benadryl for HS was d/c'd. Continues in isolation for C-Diff. Follow up:
--- NOTE | 2016-08-31 02:45 | NUR ---
Significant Event:Conversational but forgetful. 2a fulllift transfer. Turn Q2H. Buttock Red. Multiple small soft BMs. Left side flaccid. Edema glove removed, hand cleansed and moisturized. Skin between fingers starting to peel. Calf pumps on part of night. Meds crushed in applesauce. Call light in reach. Bed alarm on. Follow up:
[2016-08-31 06:46] LABS: ALBUMIN 3.4 gm/dL (3.5-5.0); ANION GAP 15.2 (10.0-19.0); BLOOD UREA NITROGEN 21 mg/dL (6-24); CALCIUM 8.6 mg/dL (8.5-10.5); CHLORIDE 99 mMol/L (96-110); CO2 23 mMol/L (22-32); CREATININE 1.1 mg/dL (0.6-1.3); ESTIMATED GFR (MDRD EQUATION) > 60; MAGNESIUM 2.4 mg/dL (1.3-2.6); PHOSPHORUS 3.1 mg/dL (2.5-4.9); POTASSIUM 4.2 mMol/L (3.7-5.1); SODIUM 133 mMol/L (135-145)
[2016-08-31 10:27] LABS: HEMOGLOBIN 13.2 g/dL (11.0-16.0); MCH 32.7 pg (27.0-34.0); MCHC 33.8 gm/dL (32.0-36.5); MCV 96.5 fl (83.0-98.0); MPV 9.1 fl (9.4-12.4); PLATELET COUNT 332 K/uL (150-450); RBC 4.04 M/uL (3.50-5.50); RDW-CV 12.9 % (11.9-14.6); WBC 8.8 K/uL (4.0-11.0)
[2016-08-31 11:11] LABS: ABSOLUTE NEUTROPHIL CT (ANC) 5.8 K/uL (1.4-9.0); BANDED NEUTROPHIL # 0.1 K/uL (0.0-0.1); BANDED NEUTROPHILS % 1 %; LYMPHOCYTE # 2.5 K/uL (0.8-4.0); LYMPHOCYTE % 28 %; MONOCYTE # 0.5 K/uL (0.0-1.0); SEGMENTED NEUTROPHIL # 5.7 K/uL (1.4-9.0); SEGMENTED NEUTROPHIL % 65 %
[2016-08-31 11:38] LABS: BILIRUBIN URINE NEGATIVE (NEGATIVE); BLOOD URINE NEGATIVE /UL (NEGATIVE); COLOR URINE YELLOW (YELLOW); GLUCOSE URINE NEGATIVE (NEGATIVE); KETONE URINE NEGATIVE (NEGATIVE); LEUKOCYTES URINE NEGATIVE /UL (NEGATIVE); NITRITE URINE NEGATIVE (NEGATIVE); PROTEIN URINE 15 mg/dL (NEGATIVE); SPEC GRAVITY URINE 1.015 (1.003-1.035); TURBIDITY URINE CLEAR (CLEAR); UROBILINOGEN URINE NORMAL (NORMAL)
[2016-08-31 11:52] LABS: BACTERIA URINE NEGATIVE (NEGATIVE); EPITHELIAL URINE RARE #/HPF (NEGATIVE); RBC URINE NEGATIVE #/HPF (NEGATIVE); WBC URINE NEGATIVE #/HPF (NEGATIVE)
--- NOTE | 2016-08-31 15:41 | NUR ---
Significant Event: Follow up: Patient sat up at edge of bed with therapy for aprox 10 minutes. UP to chair, up to commode and passed small soft stool. Patient took medicatons with applesauce, liquids. Resting in bed this afternoon, patient has not taken any naps today. Dr Cordero starting patient on seraquel at bedtime and PRN confusion. Diet has been changed to regular texture, lactose free, fluid restrict 2000ml.
--- NOTE | 2016-09-01 02:47 | NUR ---
Significant Event: Alert. FOrgetful. lt side flaccid. moves rt side ok. Takes pills in applesauce. Fluid restriction is dc/d and was restarted on nystantin. BUttocks very excoriated. Is on a regular diet/foods. Initial dose of Seroquel 12.5 given 2129. Pneumatics on legs. Follow up: Have WOC look at buttocks.
--- NOTE | 2016-09-01 11:14 | NUR ---
rec'c call from Araceli Mccauley at [facility] stating family had inquired about a SNF room for their dad, in the event he needs SNF care down the road after [facility]. LUBNA faxed initial clinical to Araceli Cortez and updated her that patient may be transferring to [facility] in a week or so. LUBNA faxed clinical update to Araceli at fax # [phone]. phone # [phone].
--- NOTE | 2016-09-01 17:23 | NUR ---
Significant Event: Follow up: Stooling soft formed several times today. Has been able to void in urinal, use bedpan and also commode. UP with lift to chair for meals. WOC nurse here today with orders for sensicare to bottom, be sure to use chair cushion. Patient has spent more time resting in bed today to allow air to get to his bottom. Eats regular diet now, no fluid restriction. has been very helpful in room today.
--- NOTE | 2016-09-02 01:51 | NUR ---
Significant Event: Alert. Very forgetful. Dr. Cordero increased HS seroquel to 25mg AT HS and pt actually slept. We are to use sensicare on his buttocks now per WOC. Is on a regular diet. No fluid restriction. Follow up:
--- NOTE | 2016-09-02 14:48 | NUR ---
Significant Event:A/0 X 3, FULL LIFT TO RECLINER AND BED, C/O L)SHOULDER PAIN- BE AWARE WHEN ROLLING IN BED NOT TO PULL ON SHOULDER, PRN TYLENOL GIVEN FOR PAIN, FORMED STOOLS X 2 TODAY, PT/OT SERVICES. AT BEDSIDE, SENSACARE TO BOTTOM. LOOKS PINK. Follow up:
--- NOTE | 2016-09-02 15:58 | NUR ---
TCU team meeting patient progressing with OT/PT/ST. recommend another 2 weeks on TCU and then [facility]. , son and d-i-l updated to above and in agreement to plan. patient has used 29 SNF days to date. message left with Justine Valentine on [facility] re: above.
--- NOTE | 2016-09-03 01:48 | NUR ---
Significant Event: Patient received in room. Patient up with lift. Left sided weakness. Meds crushed in apple sauce. NO Iv access. Patient incontinent. Patient forgetful at night. Patient refused leg pumps at this time. Creme applied to buttocks. Support/teaching provided. Call light within reach. Follow up:
--- NOTE | 2016-09-03 16:11 | NUR ---
A - NUT F/U. BUTTOCKS EXCORIATED. C-DIFF. COGNITION IMPROVING. WT: 148# (/), 08/04 WT 163# - WT DOWN 15# (9%) LABS: NA 133, ALB 3.4 MEDS: SEROQUEL, NYSTATIN SWISH & SPIT, METAMUCIL, KEPPRA, PROTONIX, VANCO DIET: LOW LACTOSE. INTAKE: 25-100% ENSURE TID 50-100% NEEDS: 2138-8048 KCAL, 62-78 G PRO D - UNINTENDED WT LOSS R/T INADEQUATE NUTRIENT INTAKE AT TIMES AEB INTAKE RECORD, 9% WT LOSS IN PAST MONTH. I - GOAL FOR INTAKE TO MEET 75% OF NEEDS. WILL CONTINUE ENSURE TID. M/E - WILL MONITOR INTAKE AND WT AND ASSIST NEEDED.
--- NOTE | 2016-09-03 18:39 | NUR ---
Significant Event: Pt is a/o x 3, pleasant and forgetful at times, cooperative with cares. Transfers with full lift/2 assist. C/o l) shoulder pain; [place] [id number] and again at 1319 with good results. Was going to give again at 1720; pt states he feels tylenol may be causing him to hallucinate. Pt's states there is titanium oxide in tylenol and he is allergic to that; so did not give at 1720. Dr. Malik came and looked at pt's head incisions; states everything looks good. He also asked when we could see if pt is cleared from c-diff. Last doses of vancomycin are given tomorrow, and then he can be checked. Reported Dr Malik's assessment of pt's head to his . Bottom reddened, sensicare applied with mili cares. Follow up:
--- NOTE | 2016-09-04 02:06 | NUR ---
Significant Event: Alert with confusion. Up with full lift. Two person assist. Left sided weakness. Meds crushed in applesauce. NO IV access. Incontinent of B&B. Isolation precaution for C-diff. Refuses leg pumps. Follow up:
--- NOTE | 2016-09-04 16:02 | NUR ---
Significant Event: Follow up: Up to commode early am, passed moderate stool, up to shower and passed another moderate stool, reported to this nurse as soft formed. eats much better today, regular diet now, feeding himself. up to chair for all meals. sensicare to bottom and this also looks much better as excortation is gone. family members visit today.
--- NOTE | 2016-09-05 02:45 | NUR ---
Significant Event:Alert to self, disoriented to time/place at times. up with two assist, full lift. Incontinent of bowel/bladder. No IV access, pills crushed in applesauce. Iso precautions for C-DIFF. Refuses leg pumps, left sided weakness. visiting this evening. Follow up:
--- NOTE | 2016-09-05 16:11 | NUR ---
Significant Event: Follow up: UP to commode , up to chair with full lift. Eats and drinks by himself with some assist. UP to pass several formed stools today. Has been continent of bladder and bowel today. took liquid tylenol today for generalized pain.
--- NOTE | 2016-09-06 05:34 | NUR ---
patient is very confused most of the shift. incontinent of bowel and bladder. patient very concerned that he can't control his urine flow. voiced concerns at start of shift that patients gown was not tied closed, that she had spilled the milk in table and wanted it removed and cleaned. she further was upset that she had to empty trash and linens that were full and she was tired of seeing them.
--- NOTE | 2016-09-06 15:02 | NUR ---
Significant Event:A/0 X 3, FORGETFUL AND FIXATED ON BOWELS. AND PATIENT REFUSE TYLENOL FOR PAIN D/T MAKING HIM HALLUCINATE AND CONFUSED. NO HALLUCINATIONS TODAY. PT/OT/ST SERVICES TODAY, FULL LIFT TRANSFERS 2 ASSIST TO RECLINER AND COMMODE, SEVERAL SMALL FORMED BMS TODAY. COMPLAINS OF SHOULDER PAIN, STATES IT FEELS BETTER WHEN PT WORKS WITH IT. ALOE TO BOTTOM. NO REDNESS NOTED. Follow up:
--- NOTE | 2016-09-07 04:14 | NUR ---
SSignificant Event: PATIENT IS CONFUSED THROUGHOUT SHIFT BUT IS ORIENTED TO SELF. INCONTINENT OF BOWEL AND BLADDER. PATIENT DENIED PAIN THROUGHOUT SHIFT. SLEPT WELL. SHORT PLACED ON PATIENT TO KEEP HIM FROM TEARING APART HIS BRIEF. Follow up:
--- NOTE | 2016-09-07 14:33 | NUR ---
Significant Event: Patient A/O x3. Forgetful at times. VS stable, on RA. Full lift transfer. Patient up to chair this shift. No complains of pain. Patient L) side flaccid. 3 formed BM's this shift. PT/OT/ST services provided this shift. Voids per urinal. Patient continued on isolation for C-Diff. supportive at bedside. Aloe applied to bottom, no redness noted. Patient pleasant and supportive with cares. Follow up:
--- NOTE | 2016-09-08 03:04 | NUR ---
Significant Event:A/O. 2 assist full lift. Isolation precautions for C-diff continue. 2 small soft, semi formed stools this shift.Incontinent at times. Left sided weakness. Turn Q2H. Meds crushed in applesauce. Call bulb clipped to gown. Bed alarm on. Follow up:
--- NOTE | 2016-09-08 16:06 | NUR ---
Significant Event: PT A&O x3. VSS. Denies pain. Remains in contact isolation for c-diff. Stools x5 this shift, soft, mushy, semi formed. PT transfers with full lift, did stand/pivot with therapy this shift. Showered this shift. L)side flaccid/slight movement. Meds crushed in applesauce. Tolerating regular diet. at bedside, assists with cares. Follow up:
--- NOTE | 2016-09-09 04:01 | NUR ---
A/O x 3. Pleasant. Cooperative. OOB in recliner until 1930. visiting until 1999. Total care. Turn q 2 hrs. Briefs on at HS. Transfer by full lift. L side paresis. L facial droop. Gag reflex intact. +Pocketing of solids. Medications crushed and put in applesauce. Tolerates well. Thin liquids. Requested liquid tylenol at HS. Rested very well. No further c/o's.
--- NOTE | 2016-09-09 14:25 | NUR ---
Significant Event: Alert to self, reorientes easily to time/place this am. states he was confused due to taking tylenol last HS. Pleasant and cooperative with cares and tasks. Left side remains flaccid, edema glove to left hand. Meds crushed in . at bedside. Continues in iso for c.diff semi formed stool today. Incontinent at times. Follow up:
--- NOTE | 2016-09-09 15:59 | NUR ---
tcu team meeting patient progressing with OT/PT/ST. Recommend continue on TCU for therapy with eventual d/c plan to [facility]. Patient and in agreement to plan and voice appreciation for the excellent therapy they are receiving on TCU.
--- NOTE | 2016-09-10 05:11 | NUR ---
Significant Event: Alert to self and place. Pleasantly confused. Left side flaccid. Turned and repostioned Q 2 hours. Continues on isolation precautions related to C-diff. Takes all medicine crushed in applesauce. States "I will not take tylenol anymore because it makes me confused". Incontinent of B&B. Follow up:
[2016-09-10 05:53] LABS: ANION GAP 10.6 (10.0-19.0); CALCIUM 8.3 mg/dL (8.5-10.5); CREATININE 1.2 mg/dL (0.6-1.3); MAGNESIUM 2.3 mg/dL (1.3-2.6); PHOSPHORUS 3.2 mg/dL (2.5-4.9); POTASSIUM 3.6 mMol/L (3.7-5.1)
--- NOTE | 2016-09-10 15:19 | NUR ---
Significant Event:A/0 X 3, DENIES PAIN, NIGHT NURSE REPORTS SLEPT ALL NIGHT LAST NIGHT, FULL LIFT TRANSFERS TO COMMODE AND RECLINER, CONTINUES ON CONTACT ISOLATION FOR CDIFF. CONTINENT B/B. FORMED STOOL. PT/OT/ST SERVICES. AT BEDSIDE. Follow up:
--- NOTE | 2016-09-11 02:34 | NUR ---
Significant Event: alert to self and place. Denies pain Left side flaccid. Turned and repositioned Q 2 hours. Continues on isolation precautions related to C-Diff. Takes all meds crushed in applesauce. Incontinent of B&B mili care given after each incident of incontinence. Full lift for all transfers with two assist Follow up:
--- NOTE | 2016-09-11 16:22 | NUR ---
Significant Event: Pt a/o x 3, pleasant and cooperative with cares. Up to commode or recliner with full lift, 2 assist. V/S stable. Continues in isolation for c-diff. Formed stools today. Follow up:
--- NOTE | 2016-09-12 03:37 | NUR ---
Significant Event: ALert only to self and person. Calm and cooperative with cares. Left side flaccid. Incontinent of B&B. Continues on isolation precautions related to C-diff. Takes all meds crushed in applesauce. Transfers with full lift and two assit. Follow up:
--- NOTE | 2016-09-12 13:56 | NUR ---
Significant Event: Pt is a/o x 3, cooperative with cares. Flaccid on L) side. Full lift for transfers. Had several formed stools today. Denies pain. Voids per urinal with assist. V/S stable. Still on nystatin swish; tongue has brown patch on it. Follow up:tomorrow will be 48 hours of formed stools, take out of iso?
--- NOTE | 2016-09-13 02:32 | NUR ---
Significant Event: Alert to self and place. Cooperative with cares. Left side flaccid. Full lift for transfers. Continues on isolation precautions related to C-Diff. Takes all meds crushed in applesauce. Incontinent of B&B. Follow up:
--- NOTE | 2016-09-13 14:54 | NUR ---
Significant Event: Follow up: UP to commode, to chair, and out in W/C with therapy into hallway today. Able to wheel self about in hallway using Right arm. Eats with minimal assist, good appetite. UP with full lift for all nursing transfers. no pain. pleasent and cooperative.
--- NOTE | 2016-09-14 01:02 | NUR ---
Significant Event: Alert. Continues to be a total lift. Aloe [place] is to be used to buttocks. Had [place] @ 2236 for shoulder pain and to help him relax. Incontinence of bladder.takes meds in applesauce. ROom will be cleaned for cdiff today. Follow up:
--- NOTE | 2016-09-14 16:24 | NUR ---
Significant Event: Follow up: UP to chair, to commode with full lift. Out to therapy in w/c for exercise. Solid soft stool today. Plans to remove patient from C diff isloation tomorrow. Dr Cabrera here to do injection to left shoulder. at bedside all day very helpful.
--- NOTE | 2016-09-15 01:54 | NUR ---
Significant Event: Alert. Pleasant & cooperative. Has not c/o pain this shift. His shoulder was injected yesterday. Takes pills in applesauce. Moves in bed. Uses urinal at times, but not always. Wears briefs as well. Takes seroquel @ hs. He slept pretty well till about 0200. Continues to be total lift. Follow up: Will clean room today to clear of cdiff
--- NOTE | 2016-09-15 13:59 | NUR ---
Significant Event: A/0 x 3, moments of forgetfulness, asking where was when she told him whe was going to get something to eat, full lift for transfers. out of bed into shower/room cleaned/ back in room no longer cdiff precautions. at bedside. Awake all day PT/OT services. Follow up:
--- NOTE | 2016-09-16 00:50 | NUR ---
Significant Event: Patient is alert and oriented x 3. Forgetful. 2 assist, full lift. Left sided weakness. Incontinent of bowel and bladder at times. Takes pills crushed in applesauce. Patient is pleasant and cooperative with cares. Follow up:
--- NOTE | 2016-09-16 02:16 | NUR ---
Significant Event:ASSUMED CARES OF PATIENT AT 0110. TURNED PER PATIENT REQUEST. URINAL USED AND MICHAEL-CARES DONE AND BARRIER CREAM APPLIED. PLEASANT AND COOPERATIVE WITH CARES. Follow up:
--- NOTE | 2016-09-16 15:43 | NUR ---
tcu team meeting. patient continues to progess with therapies on TCU. Team recommends maximizing his SNF days, with goal to go to [facility] (which will be a short stay of approx 1 month) then goal to hopefully go home. Patient walked in parallel bars 8' assist of 3, this week. Min assist with scoot transfer. eating well and supplements TID. patient has used 43 SNF days thus far. Patient in agreement to remain on TCU for continued therapies, with eventual goal for [facility] then hopefully home with .
--- NOTE | 2016-09-16 19:19 | NUR ---
Significant Event: Follow up: UP with full lift to commode , to chair . Passed moderate solid stool. eats and drinks well. cooperative with therapy. Still has no use of left hand and arm, left leg moves slightly. no pain.
--- NOTE | 2016-09-17 02:14 | NUR ---
Significant Event:A/O. 2 assist full lift. Meds crushed in applesauce. Left side flaccid. Utilizes urinal while in bed.Ruth cares. Barrier cream to buttocks. Turn when patients allows. Call bulb attached to gown. Bed alarm on. Follow up:
--- NOTE | 2016-09-17 15:28 | NUR ---
Significant Event: TRANSFERS WITH ASSIST OF 2 USING FULL LIFT. LARGE BM IN COMMODE THIS AFTERNOON. PARTICIPATED WITH THERAPIES ORDERED. DENIES NEED FOR PRNS. AT BEDSIDE MUCH OF THE SHIFT. PLEASANT AND COOPERATIVE WITH CARES. Follow up:
--- NOTE | 2016-09-18 01:06 | NUR ---
Significant Event:A/O. 2assist full lift for transfers. Left side flaccid. meds crushed in applesauce. Incontinent of bladder. Turn as patient permits. Call bulb attached to gown. Bed alarm on. Follow up:
--- NOTE | 2016-09-18 12:18 | NUR ---
Significant Event: Alert/oriented. VSS. Full lift transfers. Left side remains flaccid. Denies pain. Up to chair for meals. Meds crushed in . Incontinent at times, uses urinal at bedside. assistive in cares. Follow up:
--- NOTE | 2016-09-19 02:01 | NUR ---
Alert and oriented. Slow to respond but appropriate. Full lift transfer. Flacid left side. No complaints of pain or discomforts at this time. Up for meals. Meds crushed in applesauce. Occasional incontinence. Call bulb within reach.
--- NOTE | 2016-09-19 13:29 | NUR ---
Significant Event: Alert/oriented. VSS. Full lift transfer. Left side flaccid. Uses urinal, inc at times. Denies pain. at bedside today. Follow up:
--- NOTE | 2016-09-20 02:41 | NUR ---
Significant Event:A/O. Some forgetfulness. 2 assist full lift transfer. Left side flaccid. Kpad to L) shoulder and arm. Tries to void per urinal, Incontinent at times. Meds crushed in applesauce. Call bulb attached to gown. Bed alarm on. Follow up:
--- NOTE | 2016-09-20 12:54 | NUR ---
Significant Event: Patient alert and oriented. Forgetful. 2 assist full lift. at bedside during the day. Left arm is flaccid. Left leg is weak but able to move some. Takes meds with applesauce. Crush is needed per patient request. Follow up:
--- NOTE | 2016-09-21 02:33 | NUR ---
Significant Event:A/O, most of time. 2 assist full lift. Left arm flaccid. C/O discomfort in left leg. Kpad to L wrist and arm. Meds crushed in applesauce. Call bulb on gown. Bed alarm on. Turn as allowed. Follow up:
[2016-09-21 06:14] LABS: BASOPHIL % 0.5 %; EOSINOPHIL # 0.1 K/uL (0.0-0.5); EOSINOPHIL % 1.3 %; HEMATOCRIT 36.5 % (37.0-53.0); HEMOGLOBIN 12.2 g/dL (11.0-16.0); IMMATURE GRANULOCYTE % 0.5 %; LYMPHOCYTE % 35.1 %; MCH 32.4 pg (27.0-34.0); MCHC 33.4 gm/dL (32.0-36.5); MCV 97.1 fl (83.0-98.0); MPV 9.7 fl (9.4-12.4); NEUTROPHIL # (ANC) 4.5 K/uL (1.4-9.0); NEUTROPHIL % 51.6 %; NRBC % 0 /100WBC (0-0.00); PLATELET COUNT 236 K/uL (150-450); RBC 3.76 M/uL (3.50-5.50); RDW-CV 13.1 % (11.9-14.6); WBC 8.7 K/uL (4.0-11.0)
[2016-09-21 06:26] LABS: ANION GAP 12.9 (10.0-19.0); BLOOD UREA NITROGEN 21 mg/dL (6-24); CALCIUM 8.3 mg/dL (8.5-10.5); CHLORIDE 100 mMol/L (96-110); CO2 26 mMol/L (22-32); CREATININE 1.1 mg/dL (0.6-1.3); ESTIMATED GFR (MDRD EQUATION) > 60; POTASSIUM 3.9 mMol/L (3.7-5.1); SODIUM 135 mMol/L (135-145)
--- NOTE | 2016-09-21 16:52 | NUR ---
Significant Event: NOW CAN BE A 2 ASSIST SCOOT TRANSFER TO THE RIGHT. EASILY GOES FROM HIGHER TO LOWER BUT HAS SOME DIFFCULTY WHEN GOING FROM LOWER TO HIGHER SEATING POSITION. DENIES NEED FOR PRNS. AT BEDSIDE MUCH OF THE SHIFT. PARTICIPATED WITH THERAPIES ORDERED. PLEASANT AND COOPERATIVE WITH CARES. Follow up:
--- NOTE | 2016-09-22 01:49 | NUR ---
Significant Event: Alert and oriented with periods of confusion. 2 assist sccot transfer to the right. Left arm flaccid. Kpad to left wrist and arm. Meds crushed in applesauce. Call light in reach. Bed alarm on. Turned and repositioned every two hours and PRN. Incontinent of B&B. Pericare given after every episode. Follow up:
--- NOTE | 2016-09-22 13:22 | NUR ---
Significant Event: Alert and oriented. Up w/ lift this am. and patient stated it would be better for patient to get in recliner with lift than do a scoot. No IV access. Was able to have formed med BM on BSC this am. Meds given crushed in applesauce. Worked well with therapy. Pleasant and cooperative w/ cares. Follow up:
--- NOTE | 2016-09-23 01:53 | NUR ---
Significant Event: Alert and oriented with periods of confusion. 2 asssist lesliefer. Left arm flaccid. Meds crushed in applesauce. Incontinent of B&B, mili cares given after each episode of incontinence. TUrned and reposition during the night. Red bulb call light pinned to blanket and within reach. Bed alarm on. Follow up:
--- NOTE | 2016-09-23 12:33 | NUR ---
Significant Event: Alert and oriented. Forgetful at times. Up w/ full lift. Had c/o this am of ear pain and dizziness with movement. States he did get water in his ears during his shower yesterday. brought in own swimmers ear and Dr. Ga okayed to use PRN. Patient states it has helped. Worked well with therapy today. Meds crushed in applesauce. Pleasant and cooperative w/ cares. Follow up:
--- NOTE | 2016-09-23 16:34 | NUR ---
tcu team meeting patient progressing with therapies. receiving OT/PT/ST. nursing and therapy indicate patient should not be using a full lift (even if reqeusts it). He can be 2 assist scoot transfer to [facility]. plan dismissal to [facility] on 10-06-16. patient and in agreement to plan.
--- NOTE | 2016-09-24 01:30 | NUR ---
Significant Event:A/O. 2 assist full lift. Left arm flaccid, some discomfort. Kpad applied. L) leg some movement this shift. Turn as permitted by patient. Incontinent of bladder. BM this shift. Meds in applesauce. Call bulb attached to gown. Follow up:
--- NOTE | 2016-09-24 16:57 | NUR ---
Significant Event: Pt a/o x 3, cooperative with cares. Swallowed pills whole with applesauce. Denies pain. Up to chair with 2 assist/lift. L) arm flaccid, in sling. L) leg moves slightly. Follow up:
--- NOTE | 2016-09-25 04:41 | NUR ---
Significant Event:A/O. 2 assist full lift. Left arm flaccid. Some movement to LLE. Meds whole in applesauce. AFO for Left ankle per therapy. Incontinent of bladder. Call bulb attached to gown for easy access. Follow up:
--- NOTE | 2016-09-25 16:43 | NUR ---
Significant Event: Follow up: Patient up with full lift by nursing staff today , even though there is directions from therapy to scoot patient from bed to chair. This does not appear to be safe for nursing to attempt as patient is still very weak in legs. UP in W/c with this afternoon for a tour around the hospital. Patient denies pain. eats and drinks well.
--- NOTE | 2016-09-25 23:42 | NUR ---
Significant Event: Makes needs known. Uses red call light bulb appropriately. Full lift from recliner to bed. Reposition frequently. Uses urinal and at times is incontinent. No c/o discomfort. Follow up:
--- NOTE | 2016-09-26 13:41 | NUR ---
Significant Event: Follow up: Up to commode and chair with full lift. Passing lg formed stool today. Eats and drinks well. States that he cannot sleep at night because he is worried about wetting his bed. at bedside .
--- NOTE | 2016-09-27 03:51 | NUR ---
Significant Event:A/O. 2 assist full lift. Incontinent of bladder. Meds in applesauce. Left arm flaccid. Left leg some movement.AFO to L) ankle during the day. Call bulb attached to gown. Follow up:
--- NOTE | 2016-09-27 17:24 | NUR ---
Significant Event: Pt a/o x 3, forgetful, cooperative with cares. Transfers with 2 assist/full lift. Denies pain. No IV access. V/S stable. Takes meds whole in applesauce. Follow up:
--- NOTE | 2016-09-28 03:00 | NUR ---
Significant Event:A/O. 2 assist full lift. Incontinent of bladder. L) arm flaccid. Left leg some trembling and movement tonight. Meds in applesauce. Call bulb attached to gown. Follow up:
--- NOTE | 2016-09-28 13:55 | NUR ---
Significant Event: A/0 X3 IN AM, MORE FORGETFUL IN AFTERNOON, FULL LIFT 2 ASSIST TRANSFERS, DENIES PAIN, CUT FINGERNAILS AND TOENAILS, PT/OT/ST SERVICES, AT BEDSIDE. Follow up:
--- NOTE | 2016-09-29 02:32 | NUR ---
Significant Event:A/O. 2 assist full lift. Repo as frequently as allowed by patient. Incontinent of bladder at times. Left arm flaccid. Left leg some movement. Meds whole in applesauce. REquests prayer. Prayed with Nurse. Call bulb attached to gown. Follow up:
[2016-09-29 05:46] LABS: ANION GAP 13.2 (10.0-19.0); BLOOD UREA NITROGEN 22 mg/dL (6-24); CALCIUM 8.2 mg/dL (8.5-10.5); CHLORIDE 101 mMol/L (96-110); CO2 26 mMol/L (22-32); CREATININE 1.1 mg/dL (0.6-1.3); ESTIMATED GFR (MDRD EQUATION) > 60; POTASSIUM 4.2 mMol/L (3.7-5.1); SODIUM 136 mMol/L (135-145)
--- NOTE | 2016-09-29 11:07 | NUR ---
call rec'd from [id number] Haydee [phone]. She indicated her will be out of country and out of state from 10-15-16 to 10-27-16. d-i-l will be out of state in [place] from 10-22-16 to 10-27-16. They are hoping no dismissal will occur while they are out of state/country, as son is the only child. d-i-l states patients is to medically fragile and physically unable to care for patient at home in his current condition. Their family doctor recommends she not take him home. Family indicates their plan is [place] [facility] upon d/c from [facility] and then hope for eventual [facility]. daughter in law updated to and reviewed my notes from 08-10-16 with daughter indicating once patient d/c from TCU, to complete their claim form for LTC policy wiht the d/c date, and submit the claim form. d-i-l aware team recommendation on TCU is to d/c to [facility] on Tuesday10-06-16. norman-i-l plans to visit with Araceli at [facility] again. LUBNA on TCU faxed information to [facility] on 09-01-16 for the premlimary assessment. bini-l also given Justine BALDWIN phone # for [facility] to contact for eventual d/c plans. LUBNA updated Justine BALDWIN on [facility] to above via voicemail.
--- NOTE | 2016-09-29 13:28 | NUR ---
Significant Event: Alert/oriented. VSS. Full lift transfer. Left side flaccid. Denies pain. Trying to get to [facility] next week Follow up:
--- NOTE | 2016-09-30 05:01 | NUR ---
A/O x 2. Pleasant. Cooperative. Flat Affect. L side paresis. Continent of B/B w occassional accidents. Briefs worn at all times. Full lift used for transfer from bed to chair. Medication crushed and taken with applesauce. Thin liquids tolerated well. Rested well until 0400. No c/o's.
--- NOTE | 2016-09-30 11:22 | NUR ---
Significant Event: Follow up: A&O. PLEASANT AND COOPERATIVE. LEFT SIDE FLACCID. FULL LIFT FOR TRANSFERS. MEDS TAKEN WITH APPLESAUCE. DENIES PAIN.
--- NOTE | 2016-09-30 16:20 | NUR ---
TCU team meeting and then meeting with patients' and OT/PT/SW after team meeting. patient has used 57 SNF days. Progressing with OT/PT/ST. eating well and supplements TID. recommend 2 assist transfers with nursing rather than full lift. and therapists in agreement to remaining on TCU for continued SNF days, as patient progressing. At this time, unsure if will d/c to [facility] or remain on TCU and then [facility] in [place]. states patient is wanting to go home, and does not know about [facility] at this time. Will continue to follow and assist with eventual d/c. Justine Saleh on [facility] updated to above.
--- NOTE | 2016-10-01 01:36 | NUR ---
Significant Event: Alert and oriented with some confusion during the night. Pleasant and coorperative with cares. Left arm flaccid. Incontinent during the night of both B&B. Full lift transfer with 2 assist. Meds crushed in applesauce. Follow up:
--- NOTE | 2016-10-01 14:29 | NUR ---
Significant Event: TRANSFERS WITH 2 ASSIST PIVOT. DENIES NEED FOR PRNS. AT BEDSIDE. PARTICIPATED WITH THERAPIES ORDERED. PLEASANT AND COOPERATIVE WITH CARES. Follow up:
--- NOTE | 2016-10-02 02:16 | NUR ---
Significant Event: Alert and oriented with some confusion during the night. Pleasant and cooperative with cares. Left arm flaccid. Incontinent at night. Transfers with 2 assist pivot. Meds crushed in applesauce. Follow up:
--- NOTE | 2016-10-02 16:24 | NUR ---
Significant Event: Pt a/o x 3, forgetful, cooperative with cares. V/S stable. Denies pain. Takes meds whole in apple sauce. Transfers with 2 assist/gait belt/walker. Used bathroom today (took in w/c and transferred to toilet with 2 assist). Had xlge bm today. Follow up:
--- NOTE | 2016-10-03 02:35 | NUR ---
Significant Event: Alert and oriented, forgetful most of the time. Cooperative with cares. Takes meds crushed in applesauce. Left arm flaccid. Multiple incontinent episodes during the night. Transfers with 2 assist pivot. Follow up:
--- NOTE | 2016-10-03 16:48 | NUR ---
Significant Event: Pt a/o x 3, cooperative with cares, forgetful. V/S stable. Large BM today. No c/o pain. Takes meds whole in applesauce. Follow up:
--- NOTE | 2016-10-04 03:42 | NUR ---
Significant Event:A/O. 2 assist pivot transfer to bed from chair. Left arm flaccid and in sling for transfer. Left chest red when sling and shirt removed; no warmth noted. Left leg some movement. Meds whole in applesauce. Incontinent of bladder at times. Turn as patient allows. Call bulb in reach. Follow up:
--- NOTE | 2016-10-04 17:07 | NUR ---
Significant Event: Follow up: Patient able to pivot from bed to chair, into wheelchair, onto toilet with 2 assist. uses sling to left arm when up. no pain. feeding self well with supervision. up and out with therapy today.
--- NOTE | 2016-10-05 01:37 | NUR ---
Significant Event:A/O. 2 assist pivot transfer. Sling for flaccid left arm when up and/or transfering. AFO to left shoe when up. Meds whole in applesauce. Turn as allowed. Voids per urinal but some incontinence too. Call bulb attached to gown. Follow up:
--- NOTE | 2016-10-05 15:59 | NUR ---
Significant Event: Patient is alert/oriented. Forgetful. Patient is wanting to go to [facility]. Waiting on Justine to call back with approximate date/time. Sling to left arm as needed for transfers and as patient wants. Meds whole in applesauce, does well with this. 2 Assist pivot transfer. Follow up:
--- NOTE | 2016-10-06 02:51 | NUR ---
sSignificant Event: Alert/oriented and can make needs known. Two very heavy assist w/pivot transfer from recliner to bed w/gait belt on. Takes meds in applesauce. No pain meds given. Uses urinal but at times misses. Flomax given at 1900 and then urinates frequently. Patient states he is afraid to go to sleep because he then maybe incontinent of urine. Repositioned frequently. Utilizing a red call light bulb instead of routine one. Follow up:
--- NOTE | 2016-10-06 11:30 | NUR ---
supportive visit with who states Tanner will be moving to [facility] on Tuesday or 10-08 or 10-11. She states he is looking forward to the move. states Tanner knows about [facility] upon d/c from [facility]. SW has call into Justine on [facility] to see what day will work for admission, as family wants to be here when he moves down to [facility].
--- NOTE | 2016-10-06 12:22 | NUR ---
A - NUT F/U. WT: 148# (10/03) - STABLE x 1 MONTH MEDS: SEROQUEL, KEPPRA, PROTONIX, BOWEL DIET: LOW LACTOSE. INTAKE: 75-100% ENSURE TID - 50-100% NEEDS: [id number] KCAL, 62-78 G PRO D - NO NUTRITION R/T DIAGNOSIS IDENTIFIED AT THIS TIME. I - GOAL FOR INTAKE TO REMAIN 75-100% FOR DURATION OF STAY. WILL CONTINUE ENSURE TID TO MAINTAIN NUTRITION STATUS. M/E - WILL MONITOR ROUTINELY AND ASSIST NEEDED.
--- NOTE | 2016-10-06 16:19 | NUR ---
Significant Event: 2 ASSIST SCOOT PIVOT TRANSFER WITH GAIT BELT. DENIES NEED FOR PRNS. AT BEDSIDE THROUGHOUT THE SHIFT. TO GO TO [facility] ON TUESDAY. PLEASANT AND COOPERATIVE WITH CARES. Follow up:
--- NOTE | 2016-10-07 03:56 | NUR ---
Significant Event:A&O, CAN MAKE NEEDS KNOWN, FORGETFUL AT TIMES. UP WITH TWO VERY HEAVY PIVOT TRANSFER. MEDS IN APPLESAUCE. FLOMAX TIME WAS CHANGED SO NONE GIVEN THIS EVENING, DRINKING LARGE AMOUNTS OF WATER, ENCOURAGED TO NOT DRINK MUCH DURING THE NIGHT SO HE COULD SLEEP AND NOT WORRY MUCH, GAVE SIPS WHEN IN ROOM. Follow up:
--- NOTE | 2016-10-07 14:24 | NUR ---
Significant Event: SCOOT TRANSFERS WITH ASSIST OF 2 USING GAIT BELT. DENIES NEED FOR PRNS. GONE THIS MORNING RETURNED AROUND NOON. FLOMAX NOW GIVEN IN THE AM WITH NO C/O EXCESSIVE VOIDING. WAS RESTLESS WHILE WAS GONE THIS MORNING. PARTICIPATED WITH THERAPIES ORDERED. PLEASANT AND COOPERATIVE WITH CARES. Follow up:
--- NOTE | 2016-10-08 01:38 | NUR ---
D: Nursing Discharge Summary I: Nursing interventions provided to support the patient's individual plan of care R: MOBILITY--Two pivot transfer, staff to reposition q 2 hours NUTRITION--Low Lactose, Regular SKIN/INCISIONS/WOUNDS--Incision on top of head healed SELF CARES--Staff to provide all cares BOWEL/BLADDER--Uses Urinal, continent of bowel RESPIRATORY--No Oxygen PAIN--Left shoulder pain-chronic PSYCHOSOCIAL--Pleasant and cooperative COGNITION--Oriented x3 SPECIAL NEEDS--Leg pneumatics, refuses edema glove BLEEDING--Lovenox, Patient dx is Hemorrhagic and Ischemic stroke SENSORY IMPAIRMENTS/DENTAL NEEDS: Left eye visual decreased. Own teeth. TEACHING NEEDS-- INFECTION CONCERNS: None RISK FOR ELOPEMENT: None NEED FOR BED/MOVEMENT ALARM: Chair/Bed Alarm DISMISSAL PLANS:IPR
--- NOTE | 2016-10-08 04:29 | NUR ---
Significant Event: Pt is alert and forgetful. is at [facility]. Scoot transfers with A2 and gait belt. very involved. Incontinent several times. Slept well through the night. No PRN's due to allergies. Follow up:
--- NOTE | 2016-10-08 11:15 | NUR ---
Significant Event:PATIENT ALERT BUT IS FORGETFUL. VSS. TRANSFERS WITH 2 ASSIST, GAIT BELT SCOOT TRANSFER. AT BEDSIDE ALL MORNING. IS BEING DC'D TO [facility] FOR INTENSIVE THERAPY. ALL BELONGINGS SENT WITH PATIENT. TRANSFERRED AT 1000 VIA WHEELCHAIR. TRANSFER PACKET SENT AND REPORT GIVEN TO FELI MOISE. DENIED PAIN. NO OTHER COMPLAINTS. Follow up:
== END 2016-10-08 10:00 | DRG 56 ==
LOC: GSNF 12:12
PROVIDERS: Internal Medicine; Nurse Practitioner Family; ADMIT Internal Medicine
DX: I69.354 Hemiplegia and hemiparesis following cerebral infarction affecting left non-dominant side (principal); G93.40 Encephalopathy, unspecified; N17.9 Acute kidney failure, unspecified; A04.7 Enterocolitis due to Clostridium difficile; I95.9 Hypotension, unspecified; B37.0 Candidal stomatitis; G62.9 Polyneuropathy, unspecified; E87.5 Hyperkalemia; E87.1 Hypo-osmolality and hyponatremia; E83.41 Hypermagnesemia; I69.254 Hemiplegia and hemiparesis following other nontraumatic intracranial hemorrhage affecting left non-dominant side; I10 Essential (primary) hypertension; I25.10 Atherosclerotic heart disease of native coronary artery without angina pectoris; G47.00 Insomnia, unspecified; M79.1 Myalgia; T50.995A Adverse effect of other drugs, medicaments and biological substances, initial encounter; Z79.82 Long term (current) use of aspirin; E78.5 Hyperlipidemia, unspecified; F41.9 Anxiety disorder, unspecified; M25.511 Pain in right shoulder; M25.552 Pain in left hip; M25.551 Pain in right hip; Z95.1 Presence of aortocoronary bypass graft; Z79.899 Other long term (current) drug therapy; M13.812 Other specified arthritis, left shoulder; K59.00 Constipation, unspecified; G89.29 Other chronic pain; R04.0 Epistaxis; M13.832 Other specified arthritis, left wrist
CPT/HCPCS: J1040; J1650; J3370; J7030

== ENCOUNTER 2016-10-08 10:01 | Inpatient (IN) | payer MEDICARE, BC ==
[~2016-10-08] VITALS: Ht 162.6 cm; Wt 67.4 kg
--- NOTE | ~2016-10-08 | CON ---
PATIENT'S NAME: ARCHIE JOHN [facility] AGE: 76 Y [address] ROOM: [id number] [place], [place] [address] LOCATION: [facility] ADMIT DATE: 10/08/2016 Consultation DISCHARGE DATE: FAMILY PHYSICIAN: Reggie Reyes MD ATTENDING PHYSICIAN: oSm Stubbs DATE OF CONSULTATION: 10/27/2016 REFERRING PHYSICIAN: ANNI SEPULVEDA MD Team members reporting include: Dr. Stubbs; Justine Valentine, sr. social media & mobile manager; Aida Forrest, RN; Mine Champion, PT; Stephenie Green, PT; Darcy Vizcaino, OT; Kena Jimenez, speech therapy; Araceli Stauffer, therapeutic rec; and Sister Marisol Mcclure, Pastoral Care. CURRENT STATUS: Gretel Hart is a 76-year-old man, admitted to our inpatient rehab unit on October 08, 2016 following a CVA. The patient was admitted to us from our skilled unit. The patient is currently incontinent of bladder at times. He does have a right head healed incision. No complaints of pain. The patient is on a regular diet. He is getting Ensure t.i.d. with meals. Doing well. The patient can transfer sit to supine. Contact guard assistance with max cues, supine to sit. Contact guard assistance with max cues, sit to stand and stand to sit. Contact guard assistance and bed to chair and chair to bed with contact guard assistance and max cues. He can walk with a gladis walker minimal to contact guard assistance with constant, verbal cues, or tactile cues. Stairs have not been done yet for safety. The patient has met 0/5 short-term PT goals. The patient can dress his upper body max to dependent; lower body dressing dependent, grooming standby, bathing moderate assistance, toilet and shower transfers, minimal assistance; and feeding, standby assistance. He has met 0/7 short-term OT goals. The patient's comprehension, language, and expression are at standby. Memory and problem solving are minimal assistance and swallowing standby. He can complete car transfers at minimal assistance depending on responsiveness. He does have a difficulty attending to the left side at times. The patient does get very distractible in outside environments. The patient has been very open to pastoral care. DISCHARGE PLAN: The patient is receiving 3 hours of PT, OT, and speech Tuesday through Tuesday. The patient has daily rehab, nursing, and physiatry involvement as well as therapeutic recreational services 4 days per week. The patient has shown functional improvement and is progressing. Please see his plan of care for specific goals. Plan is for patient to discharge in approximately 2 weeks. Plan is for patient to go to [facility] in [place], [place] upon discharge. PATIENT'S NAME: ARCHIE JOHN [facility] AGE: 76 Y [address] ROOM: [address] [place] [id number] LOCATION: [facility] ADMIT DATE: 10/08/2016 Consultation DISCHARGE DATE: FAMILY PHYSICIAN: Reggie Reyes MD ATTENDING PHYSICIAN: Som Stubbs JUSTINE VALENTINE FOR SOM STUBBS MD TD/modl /[id number] d: 11/10/16 1802 t: 11/22/16 1544, CONSULTATION REPORT
--- NOTE | ~2016-10-08 | HP ---
PATIENT'S NAME: ARCHIE JOHN [facility] AGE: 76 Y [address] ROOM: [place] [address] LOCATION: [facility] ADMIT DATE: 10/08/2016 History & Physical DISCHARGE DATE: FAMILY PHYSICIAN: Reggie Reyes MD ATTENDING PHYSICIAN: Som Stubbs DATE OF SERVICE: This 76-year-old gentleman is admitted to rehab unit at [facility] on 10/08/2016 for continuous medical treatment and intensive rehabilitation. 1. Unstable gait. 2. Dependent on activities of daily and self-care. 3. Status post left hemiplegia secondary to ischemic stroke which later on status post tPA developed left parietal hemorrhagic intracranial bleeding and right frontal intracranial hemorrhage, status post craniotomy done on 07/23/2016 after he was on tPA initially on an initial admission for ischemic stroke. He is now with left-sided weakness and dependent activity of daily and self care and with some left-sided facial droop plus visual cut neglect. He is admitted for intensive rehabilitation and continuous medical treatment. On admission, his vitals are as follow: Blood pressure 151/59, temperature 98.0, pulse 76, respiration rate 14. He is 5 feet 4 inches tall and weighs 68.6 kg. ALLERGIES: HE IS ALLERGIC TO STATINS, ZITHROMAX, REGLAN, BAYCOL, COREG, AND NORVASC. AT THE PRESENT TIME, ALERT, ORIENTED, CAN COMPREHEND, EXPRESS WITHOUT DIFFICULTY. CAN SWALLOW WITHOUT MUCH DIFFICULTY. HIS VOICE IS CLEAR AND NOT WET. HE IS WEAK ON THE LEFT SIDE UPPER AND LOWER EXTREMITIES. HE IS ALSO FOLLOWED BY THE SPEECH. HE IS, AT THE PRESENT TIME, ABLE TO WALK UP TO 15 FEET X1 AND 10 FEET X1 WITH MODERATE ASSISTANCE OF 1 PERSON AND MARTHA-WALKER WITH GAIT BELT. MEDICATIONS: He is at the present time on the following medications: 1. Pneumovax vaccine as instructed. 2. Aspirin 81 mg p.o. daily. 3. Lovenox 40 mg subcu daily. PATIENT'S NAME: ARCHIE JOHN [facility] AGE: 76 Y [address] ROOM: [place] [address] LOCATION: [facility] ADMIT DATE: 10/08/2016 History & Physical DISCHARGE DATE: FAMILY PHYSICIAN: Reggie Reyes MD ATTENDING PHYSICIAN: Som Stubbs 4. Lisinopril 5 mg p.o. daily. 5. Protonix 40 mg p.o. daily. 6. Metamucil 1 packet p.o. b.i.d. 7. Seroquel 25 mg p.o. at night. 8. Flomax 0.4 mg p.o. daily. 9. Keppra 500 mg p.o. twice daily. 10. Tylenol 650 q.6 hours, do not exceed acetaminophen 4 g q.24 hours. 11. Linville 5/325 one tablet p.o. q.6 hours, do not exceed acetaminophen 4 g q.24 hours. 12. Lacri-Lube, apply small amount, ophthalmic as needed p.r.n. 13. Dulcolax suppository 10 mg rectally p.r.n. as needed. 14. Anusol HS 1 suppository rectally at bedtime as needed. 15. Anusol cream HS 3 times daily. 16. MOM 30 mL p.o. daily. 17. Nitrostat 0.4 mg subcu as needed. 18. Seroquel 12.5 mg q.12 hours. 19. Orange nasal spray 2 sprays each nostril p.r.n. as needed. 20. The patient is on medication as needed for ear drops. PAST MEDICAL HISTORY: Of significance as follows. 1. History of ischemic cerebrovascular accident leading to right-sided weakness; however, status post tPA with left parietal hemorrhage, status post drainage of the hemorrhage on 07/23/2016. 2. He is also with essential hypertension. 3. Coronary artery disease. 4. Encephalopathy initially secondary to stroke. 5. Insomnia on and off. 6. C. diff colitis. 7. Reflux gastric disease. 8. Possible seizure disorders, on treatment. 9. Hemorrhoids, external. 10. History of coronary artery disease. 11. Dyslipidemia. 12. Status post CABG per history. 13. Depression. At the present time, 1. We will put on intensive PT, OT, Speech 3 hours per day and 15 hours per week for about 3 weeks, aiming to discharge with modified independence. 2. We will keep on cardiac prudent regular consistency diet. 3. We will send for urinalysis in a.m. with reflex microscopy. 4. CBC with automated differential. 5. CMS. 6. Prealbumin. 7. We will keep on hospitalist census to follow, a neurologist census to PATIENT'S NAME: ARCHIE JOHN [facility] AGE: 76 Y [address] ROOM: [id number] [place] [id number] LOCATION: [facility] ADMIT DATE: 10/08/2016 History & Physical DISCHARGE DATE: FAMILY PHYSICIAN: Reggie Reyes MD ATTENDING PHYSICIAN: Som Stubbs, and Dr. Malik to follow. All the above was explained to him in detail. He verbalized understanding and in agreement with plan of care. SOM STUBBS MD WMS/modl /[id number] D: 757 T: HISTORY & PHYSICAL
--- NOTE | ~2016-10-08 | CON ---
PATIENT'S NAME: TANNER JOHN [facility] AGE: 76 Y [address] ROOM: [address] [place], [place] [address] LOCATION: [facility] ADMIT DATE: 10/08/2016 Consultation DISCHARGE DATE: FAMILY PHYSICIAN: Reggie Reyes MD ATTENDING PHYSICIAN: Som Stubbs DATE OF CONSULTATION: 10/12/2016 REFERRING PHYSICIAN: ANNI SEPULVEDA MD Team members reporting include Dr. Stubbs; Justine Valentine, social services analyst; Aida Forrest RN; Mine Champion, PT; Darcy Vizcaino, OT; Kena Jimenez, Speech Therapy; Araceli Stauffer, therapeutic rec; father Gaston, Pastoral Care; and Harmony from Pharmacy. CURRENT STATUS: Tanner is a 76-year-old man admitted to our inpatient rehab unit on October 08, 2016, following a CVA. The patient came in with a CVA and had tPA and blood after that. The patient did have to have a right frontal craniotomy with hematoma evacuation. He has a history of hypertension, left-sided hemiplegia, coronary artery disease, chronic shoulder and hip pain, anxiety, and dyslipidemia. The patient is currently continent of bowel, occasionally incontinent of bladder. No skin or pain issues. The patient is on a regular diet. He takes Ensure t.i.d. with meals, lactose-free. The patient can transfer sit to supine and supine to sit at minimal assistance; sit to stand and stand to sit, minimal assistance. He can do scoot transfer at minimal assistance with cues. He is able to walk 30 to 50 feet with a gladis-walker at minimal to moderate assistance. His progress is variable. He has overall motor planning deficits. His goals have been set for mod I for transfers, contact guard assistance to standby for gait, and contact guard assistance for stairs. He can dress his upper body at max assistance; lower body, dependent; grooming, standby; bathing, moderate assistance. He can complete toilet and shower transfers using a scoot technique at minimal assistance. He is dependent for toileting. Feeding is standby. His goals have been set for contact guard assistance to standby assistance. Comprehension and language and expression are at standby. Memory and problem solving, minimal assistance. The patient's voice is monotone, they are working on intonation. Initial evaluation was done by therapeutic rec. The patient has been very open to pastoral care. There are no pharmacy concerns at this time. DISCHARGE PLAN: The patient is receiving 3 hours of PT, OT, and Speech Tuesday through Tuesday. The patient has daily rehab, nursing, and physiatry involvement as well as therapeutic recreational services 4 days per week. The patient has shown functional improvement and is progressing. Please see his plan of care for specific goals. Plan is for the patient to discharge in approximately 3 to 4 PATIENT'S NAME: TANNER JOHN [facility] AGE: 76 Y [address] ROOM: [place] [address] LOCATION: [facility] ADMIT DATE: 10/08/2016 Consultation DISCHARGE DATE: FAMILY PHYSICIAN: Reggie Reyes MD ATTENDING PHYSICIAN: Som Stubbs. The patient may need to go to a fdc facility post discharge. JUSTINE VALENTINE FOR SOM STUBBS MD TD/modl /[id number] d: 10/22/16 1725 t: 11/22/16 1536, CONSULTATION REPORT
--- NOTE | ~2016-10-08 | CON ---
PATIENT'S NAME: TANNER JOHN [facility] AGE: 76 Y [address] ROOM: [address] [place], [place] [address] LOCATION: [facility] ADMIT DATE: 10/08/2016 Consultation DISCHARGE DATE: 11/17/2016 FAMILY PHYSICIAN: Reggie Reyes MD ATTENDING PHYSICIAN: Som Stubbs DATE OF CONSULTATION: 11/16/2016 REFERRING PHYSICIAN: Roberta Yost MD Team members reporting include Dr. Stubbs; Justine Valentine, psych social worker; Aida Forrest, RN; Mine Champion, PT; Darcy Vizcaino, OT; Kena Jimenez, Speech Therapy; Araceli Stauffer, therapeutic rec; and Sister Marisol Mcclure, Pastoral Care. CURRENT STATUS: Tanner is a 76-year-old man admitted to our inpatient rehab unit following a stroke with left hemiplegia. The patient is currently continent of bowel and bladder, taking Ultram at times for back pain. He can complete sit to supine and supine to sit transfers at standby; bed to chair and chair to bed transfers at standby. He can walk 50 to 150 feet at contact guard assistance using a quad cane and an AFO. The patient can climb 8 stairs with one railing at minimal assistance and [id number] cues. He can dress his upper body with minimal assistance; lower body, max assistance; grooming, standby; bathing, minimal assistance; toilet transfers, contact guard assistance to minimal assistance; and shower transfers, minimal assistance. Toileting is currently at moderate assistance, and feeding is standby. He has met 0 short-term OT goals. Comprehension, language, and expression are at standby; memory and problem solving, minimal assistance; and swallowing, standby to mod I. the patient can complete car transfers at contact guard assistance to minimal assistance and ekfj-km-ctmy cues. The patient has been very open to pastoral care. DISCHARGE PLAN: The patient is receiving 3 hours of PT, OT, and speech Tuesday through Tuesday. The patient has daily rehab, nursing, and physiatry involvement as well as therapeutic recreational services 4 days per week. The patient has shown functional improvement and is progressing. Please see his plan of care for specific goals. Plan is for the patient to discharge on Thursday, November 17, 2016. The patient will be going to [facility] in [place], [place]. JUSTINE VALENTINE FOR SOM STUBBS MD PATIENT'S NAME: TANNER JOHN [facility] AGE: 76 Y [address] ROOM: [address] [address] LOCATION: [facility] ADMIT DATE: 10/08/2016 Consultation DISCHARGE DATE: 11/17/2016 FAMILY PHYSICIAN: Reggie Reyes MD ATTENDING PHYSICIAN: Som Stubbs TD/brandy /[id number] d: 11/26/16 1715 t: 12/16/16 1632, CONSULTATION REPORT
--- NOTE | ~2016-10-08 | CON ---
PATIENT'S NAME: TANNER JOHN [facility] AGE: 76 Y [address] ROOM: [address] [place], [place] [address] LOCATION: [facility] ADMIT DATE: 10/08/2016 Consultation DISCHARGE DATE: FAMILY PHYSICIAN: Reggie Reyes MD ATTENDING PHYSICIAN: Som Stubbs DATE OF CONSULTATION: 10/19/2016 REFERRING PHYSICIAN: ANNI SEPULVEDA MD Team members reporting include Dr. Stubbs, Justine Valentine, social work nurse; Aida Forrest RN; Mine Champion, PT; Meka Huber, OT; Kena Jimenez, Speech Therapy; Araceli Stauffer, therapeutic rec; Sister Marisol Mcclure, Pastoral Care; and Noemi Quintero, pharmacist. CURRENT STATUS: Tanner is a 76-year-old man, admitted to our inpatient rehab unit on October 08, 2016, following a CVA with left hemiplegia. The patient did have tPA and then did have a bleed with subsequent craniotomy. The patient is incontinent of bladder at times. The patient's right incision on his head has healed. He is on a regular diet, taking Ensure Enlive 3 times a day, lactose-free, doing well. The patient can transfer sit to supine at minimal assistance; supine to sit, minimal assistance; sit to stand and stand to sit, contact guard assistance; and bed to chair, contact guard assistance to minimal assistance. He can ambulate short distances moderate to contact guard assistance. The patient has met 0/5 short-term PT goals. The patient can dress his upper body at moderate to max assistance; lower body, dependent; grooming, standby; bathing, moderate assistance; toilet and shower transfers, minimal assistance; and feeding, standby. The patient will be getting a resting hand splint for his left upper extremity due to tone. He has met 3/5 short-term OT goals and his long-term goals have been set for contact guard assistance to standby assistance. The patient's comprehension, language, and expression are at standby. Memory and problem solving, minimal assistance. He is getting E- Stim with max cues for exercises. Car transfers are currently minimal to moderate assistance. The patient is completing visual scanning using Q-line. The patient has been very open to Pastoral Care visits. No pharmacy concerns. DISCHARGE PLAN: The patient is receiving 3 hours of PT, OT, and Speech Tuesday through Tuesday. The patient has daily rehab, nursing, and physiatry involvement as well as therapeutic recreational services 4 days per week. The patient has shown functional improvement and is progressing. Please see his plan of care for specific goals. Plan is for the patient to discharge in approximately 3 weeks. Plan is for the patient to possibly go to [facility] in [place], [place], upon discharge. PATIENT'S NAME: TANNER JOHN [facility] AGE: 76 Y [address] ROOM: [place] [address] LOCATION: [facility] ADMIT DATE: 10/08/2016 Consultation DISCHARGE DATE: FAMILY PHYSICIAN: Reggie Reyes MD ATTENDING PHYSICIAN: Som Stubbs JUSTINEKARIE VALENTINE FOR SOM STUBBS MD TD/modl /[id number] d: 10/22/16 1659 t: 11/22/16 1533, CONSULTATION REPORT
--- NOTE | ~2016-10-08 | HP ---
PATIENT'S NAME: TANNER JOHN [facility] AGE: 76 Y [address] ROOM: [place] [address] LOCATION: [facility] ADMIT DATE: 10/08/2016 History & Physical DISCHARGE DATE: FAMILY PHYSICIAN: Reggie Reyes MD ATTENDING PHYSICIAN: Som Agrawal DATE OF SERVICE: HISTORY: Tanner is complaining of pain in his left shoulder. He is paralyzed in his left upper extremity due to a stroke, but he is attending therapy on the inpatient rehab several times a day. Pain is dull and achy, it radiates out over the deltoid. He cannot move it, but the therapist do passive motion and that is painful. X-rays of his left shoulder show some AC arthritis. No fractures. No history of specific injury. IMPRESSION: Impingement acromioclavicular arthritis, left shoulder, possible cuff tear. PLAN: Left shoulder injected anteriorly. Time-out performed. Risks and benefits discussed. Consent was signed. Injected with 80 mg Depo-Medrol, 6 mL of 1% lidocaine, tolerated well. No complications. Therapy may continue as tolerated with no limitations. MD EMMANUEL PATE/brandy /[id number] CC: Som Agrawal MD D: [id number] T: 102 HISTORY & PHYSICAL
--- NOTE | ~2016-10-08 | CON ---
PATIENT'S NAME: ARCHIE [facility] AGE: 76 Y [address] ROOM: [address]3294 [place] [address] LOCATION: [facility] ADMIT DATE: 10/08/2016 Consultation DISCHARGE DATE: FAMILY PHYSICIAN: Reggie Reyes MD ATTENDING PHYSICIAN: Som Stubbs DATE OF CONSULTATION: 11/09/2016 REFERRING PHYSICIAN: ANNI SEPULVEDA MD Team members reporting include Dr. Stubbs; Justine Valentine, social research assistant; Aida Forrest RN; Mine Champion, PT; Darcy Vizcaino, OT; Kena Jimenez, Speech Therapy; Araceli Stauffer, therapeutic rec; and Sister Marisol Mcclure, Pastoral Care. CURRENT STATUS: Gretel Hart is a 76-year-old man admitted to our inpatient rehab unit on October 08, 2016 following a CVA. The patient is incontinent of bladder at times. No skin issues. He does complain of pain occasionally in that left arm. The patient is on a regular diet. He is taking Ensure t.i.d. with meals, doing well overall. Prealbumin is at 29. The patient can transfer sit- to-supine and avzums-ph-jql at standby with extra time and cues. He can transfer lvt-ct-svyuk and ghklx-tx-hoh at standby assistance to contact guard assistance and max cues. He can walk 50 to 150 feet using a gladis walker or quad cane at contact guard assistance. His AFO was recently adjusted. He can climb 8 stairs with one railing at minimal assistance. He does occasionally catches toe which he needs cueing for. He has met 4/4 short-term PT goals. The patient can dress his upper and lower body at max assistance. Grooming, standby; bathing, minimal assistance; toilet and shower transfers, minimal assistance; and toileting is irsqljfw-nt-bgkohprii assistance; feeding is currently at standby assistance. His left arm is showing a little movement at the shoulder. Comprehension is currently standby. Language and expression, standby. Memory, minimal assistance. Problem solving, minimal assistance and swallowing at standby. The patient is at minimal assistance for car transfers. The patient does get very distractible, especially when he is outdoors. He does need to cues to scan to the left. The patient has been very open to pastoral care and praying. DISCHARGE PLAN: The patient is receiving 3 hours of PT, OT, and speech Tuesday through Tuesday. The patient has daily rehab, nursing, and physiatry involvement as well as therapeutic recreational services 4 days per week. The patient has shown functional improvement and is progressing. Please see his plan of care for specific goals. Plan is for patient to discharge in approximately one week. Plan is for patient to go to [facility] in [place], [place]. PATIENT'S NAME: ARCHIE JOHN [facility] AGE: 76 Y [address] ROOM: [place] [address] LOCATION: [facility] ADMIT DATE: 10/08/2016 Consultation DISCHARGE DATE: FAMILY PHYSICIAN: Reggie Reyes MD ATTENDING PHYSICIAN: Som Stubbs JUSTINE VALENTINE FOR SOM STUBBS MD TD/modl /[id number] d: 11/10/161 t: 11/22/16 1541, CONSULTATION REPORT
--- NOTE | ~2016-10-08 | CON ---
PATIENT'S NAME: TANNER [facility] AGE: 76 Y [address] ROOM: [address] [place], [place] [address] LOCATION: [facility] ADMIT DATE: 10/08/2016 Consultation DISCHARGE DATE: FAMILY PHYSICIAN: Reggie Reyes MD ATTENDING PHYSICIAN: Som Stubbs DATE OF CONSULTATION: 11/02/2016 REFERRING PHYSICIAN: ANNI SEPULVEDA MD Team members reporting include Dr. Stubbs; Justine Valentine, social media intern; Aida Forrest RN; Mine Champion, PT; Darcy Vizcaino, OT; Kena Jimenez, Speech Therapy; Araceli Stauffer, therapeutic rec; Sister Marisol Mcclure, Pastoral Care; and Noemi Quintero, pharmacist. CURRENT STATUS: Tanner is a 76-year-old man admitted to our inpatient rehab unit on October 08, 2016, following a hemorrhagic stroke. The patient is incontinent of bladder at times. Incision on his head has healed. Takes liquid Tylenol for pain. The patient's prealbumin is at 25. He is taking Ensure t.i.d. with meals, on a regular diet. He can transfer sit to supine and supine to sit at standby; bed to chair and chair to bed, standby assistance to contact guard assistance. He is walking 50 feet at contact guard assistance to minimal assistance, and he can climb 4 stairs with one railing at minimal to moderate assistance going up and moderate assistance coming down. He has met 4/5 short- term PT goals. The patient can dress his upper body at moderate assistance; lower body, dependent; grooming, standby; bathing, minimal assistance; toilet and shower transfers, minimal assistance; toileting, dependent; and feeding, standby. The patient has met 2/7 short-term OT goals. Comprehension, language, and expression are at standby; memory and problem solving, minimal assistance; swallowing, standby. The patient can complete car transfers at minimal assistance. He does have left-sided neglect, especially with distractions. The patient has been very open to pastoral care. No pharmacy concerns at this time. DISCHARGE PLAN: The patient is receiving 3 hours of PT, OT, and speech Tuesday through Tuesday. The patient has daily rehab, nursing, and physiatry involvement as well as therapeutic recreational services 4 days per week. The patient has shown functional improvement and is progressing. Please see his plan of care for specific goals. Plan is for the patient to discharge in approximately 1 to 2 weeks. Plan is for the patient to discharge to [facility] in [place], [place]. PATIENT'S NAME: TANNER [facility] AGE: 76 Y [address] ROOM: [place] [address] LOCATION: [facility] ADMIT DATE: 10/08/2016 Consultation DISCHARGE DATE: FAMILY PHYSICIAN: Reggie Reyes MD ATTENDING PHYSICIAN: Som Stubbs JUSTINE VALENTINE FOR SOM STUBBS MD TD/modl /[id number] d: 11/10/16 1611 t: 11/22/16 1538, CONSULTATION REPORT
--- NOTE | ~2016-10-08 | DS ---
PATIENT'S NAME: ARCHIE JOHN [facility] AGE: 76 Y [address] ROOM: [address] [place], [place] [address] LOCATION: [facility] ADMIT DATE: 10/08/2016 Discharge Summary DISCHARGE DATE: 11/17/2016 FAMILY PHYSICIAN: Reggie Reyes MD ATTENDING PHYSICIAN: Kolton Stubbs This 76-year-old gentleman was admitted to rehab unit at [facility], [place], [place] on 10/08/2016, is discharged to go to [facility] in [place], [place] on 11/17/2016. He is at the present time doing well, alert, oriented. Vital Signs: Blood pressure 113/58, temperature 98.6, pulse is 70, respirations 16. He can ambulate with ankle-foot orthosis on the left ankle for about 60 feet x1 and then 30 feet x1 showing improvement in motor planning and with front- wheeled walker with cuing for safety. He will continue with PT, OT, and Speech on a regular basis. 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 He is at the present time to continue on his PT, OT, and Speech on a regular basis. I will see him in another 4 weeks. He will follow with his family physician as soon as possible. He will not drive and/or operate any mechanical device until he is re- evaluated. He is on the following medications: 1. Norvasc 2.5 mg p.o. daily. 2. Aspirin 81 mg p.o. daily. 3. Humibid LA 600 mg twice daily. 4. Claritin 10 mg p.o. daily. 5. Protonix 40 mg p.o. daily. 6. Metamucil 1 packet twice daily. 7. Seroquel 25 mg at night. 8. Keppra 500 mg twice daily p.o. 9. Lacri-Lube, apply small amount, ophthalmic as needed p.r.n. 10. Tessalon Perles 100 mg p.o. q.6 hours as needed. 11. Dulcolax suppository 10 mg rectally p.r.n. as needed. PATIENT'S NAME: ARCHIE JOHN [facility] AGE: 76 Y [address] ROOM: [address] [place] [id number] LOCATION: [facility] ADMIT DATE: 10/08/2016 Discharge Summary DISCHARGE DATE: 11/17/2016 FAMILY PHYSICIAN: Reggie Reyes MD ATTENDING PHYSICIAN: Kolton Stubbs 12. Tums 1000 mg q.3 hours as needed. 13. Anusol, apply at bedtime. 14. Milk of magnesia 30 mL at bedtime. 15. Antivert 12.5 mg p.o. daily as needed. 16. Nitrostat 0.4 mg sublingually as needed p.r.n. 17. [place] nasal spray 2 sprays each nostril as needed p.r.n. 18. Cepastat 1 lozenge as needed p.r.n. 19. Ultram 50 mg p.o. twice daily as needed, give 36 of them, renewal per his family physician. 20. The patient's own eyedrops 3-4 eyedrops as needed p.r.n. from bedside. FINAL DIAGNOSES: 1. Unstable gait. 2. Dependent activities of daily and self-care. 3. Status post hemorrhagic stroke and left-sided weakness after ischemic stroke and was given tPA. 4. Possible seizure disorder. 5. History of coronary artery disease. 6. Hypertension. 7. Rectal hemorrhoids. 8. Depression. 9. Chronic obstructive pulmonary disease. 10. Dyslipidemia. The patient will continue on PT, OT, and Speech as I mentioned and we will see him in 4 weeks. He must follow with his family physician as soon as possible. Should not operate any mechanical or electrical device. Should not drive until he is re-evaluated. All the above was explained to him and his in detail. They verbalized understanding and in agreement with plan of care. KOLTON STUBBS MD WMS/modl /[id number] d: 11/17/169 t: 11/17/16 0832, DISCHARGE SUMMARY
--- NOTE | 2016-10-08 13:16 | NUR ---
PATIENT ADMITTED TO [facility] FROM [facility]CU. USES 2 ASSIST SLIDE TRANSFER. LEFT SIDE FLACCID, CAN MOVE LEFT FOOT SLIGHTLY BUT LEFT ARM DOES NOT MOVE AT ALL. NUMBNESS TO LEFT HAND AND FOOT. AFO TO LEFT FOOT, SLING TO LEFT ARM. NEW ORDER FOR ISOTONER GLOVE TO LEFT HAND, VERY EDEMATOUS. ELEVATE LEFT HAND AT ALL TIMES. FAMILY AT BEDSIDE, PATIENT ALERT AND ORIENTED X3 BUT FORGETFUL AT TIMES. BULB CALL LIGHT IN PLACE. PILLS WHOLE IN APPLESAUCE. DENIES PAIN. INCISION FROM CRANIOTOMY HEALED. NO IV ACCESS. NO SKIN ISSUES. HISTORY OF HYPERTENSION. HISTORY OF CABG, STENTS PLACED, GA, HTN. HAD CRANIOTOMY ON 07/23/16. ST, OT, PT, TR.
--- NOTE | 2016-10-09 04:30 | NUR ---
Significant Event: Patient alert and oriented but forgetful. Transfers 2A slide. L) side flaccid, can move left leg/foot slightly. AFO to L) foot when up/sling to L) arm. Edema to L) side. at bedside/staying at [facility]. Meds whole in applesauce. Uses bulb call light. Incontinent at times, attempts to use urinal. Follow up:
[2016-10-09 05:34] LABS: BASOPHIL % 0.4 %; EOSINOPHIL # 0.3 K/uL (0.0-0.5); EOSINOPHIL % 4.2 %; HEMATOCRIT 35.9 % (37.0-53.0); HEMOGLOBIN 11.9 g/dL (11.0-16.0); IMMATURE GRANULOCYTE % 0.3 %; LYMPHOCYTE # 3.1 K/uL (0.8-4.0); LYMPHOCYTE % 41.5 %; MCH 32.4 pg (27.0-34.0); MCHC 33.1 gm/dL (32.0-36.5); MCV 97.8 fl (83.0-98.0); MONOCYTE # 0.9 K/uL (0.0-1.0); MONOCYTE % 11.5 %; NEUTROPHIL # (ANC) 3.2 K/uL (1.4-9.0); NEUTROPHIL % 42.1 %; NRBC % 0 /100WBC (0-0.00); PLATELET COUNT 199 K/uL (150-450); RBC 3.67 M/uL (3.50-5.50); RDW-CV 13.4 % (11.9-14.6); WBC 7.6 K/uL (4.0-11.0)
[2016-10-09 05:47] LABS: ALK PHOS 47 IU/L (33-138); ALT 14 IU/L (12-78); ANION GAP 13.9 (10.0-19.0); AST 12 IU/L (10-40); BLOOD UREA NITROGEN 20 mg/dL (6-24); CALCIUM 8.5 mg/dL (8.5-10.5); CHLORIDE 103 mMol/L (96-110); CO2 26 mMol/L (22-32); ESTIMATED GFR (MDRD EQUATION) > 60; POTASSIUM 3.9 mMol/L (3.7-5.1); SODIUM 139 mMol/L (135-145); TOTAL BILIRUBIN 0.4 mg/dL (0.0-1.5); TOTAL PROTEIN 6.1 g/dL (6.0-8.4)
--- NOTE | 2016-10-09 11:29 | NUR ---
Significant Event: Alert/oriented. VSS. 2a scoot trasnfer. Left side flaccid, LUE sling when up and LLE afo. Denies pain. at bedside and is assistive with cares. Uses urinal at bedside. Follow up:
--- NOTE | 2016-10-10 04:25 | NUR ---
Significant Event: Patient alert and oriented but forgetful. Slept off and on throughout the night, had some confusion at times. Transfers 2A stand pivot. L) side flaccid, wears sling and AFO. Uses urinal/incontinent throughout the night. at bedside. Uses bulb call light. Cooperative with cares. Follow up:
--- NOTE | 2016-10-10 15:16 | NUR ---
Significant Event: A/0 X 3, SOME ANXIOUSNESS WHEN LEAVES ROOM, HEAVY 2 ASSSIST PIVOT TRANSFER TO W/C, TO TOILET, CONTINENT B/B. LG BM, CALLS FOR URINAL AND USES APPROPRIATELY. L)ARM SLING ON WITH TRANSFERS, L) AFO IN SHOE WITH TRANSFERS, EATS MEALS WELL, ASSISTS WITH CARES, DENIES PAIN TODAY. GOES OUTSIDE TO SIT WITH . Follow up:
--- NOTE | 2016-10-11 05:17 | NUR ---
Significant Event: Patient alert and oriented but forgetful at times. Transfers 2A stand pivot. Left side flaccid, sling to L) arm/afo to L) ankle. Incontinent at times, uses urinal at night. at bedside and is staying in the [facility]. VSS. Cooperative with cares. Follow up:
--- NOTE | 2016-10-11 14:58 | NUR ---
Significant Event: Pt up in room to w/c or toilet with 2 assist, scoot transfer. Left upper ext. flaccid. Rigidity noted this am, and this afternoon improvement noted. Hand and fingers not as tight. Arm sling on left when up, Laid outward on pillows when in bed. Slight movement in LLE, able to lift leg off bed surface. AFO to left foot when up. Pt denied any numbness or tingling. Flomax stopped per family request as pt was inc. at times and more urgency and dribbling while on med. Will eval. and see how pt responds while med is stopped. Pt is voiding well, and had 3 soft BM today. Continent of bowel and bladder. Left shoulder injection done per Dr aCbrera. Pt reported relief. Voiced appreciation for injection. Pt slow with response at times. Alert and oriented, forgetful at times. Follow up: safety, activity
--- NOTE | 2016-10-12 05:26 | NUR ---
Significant Event: Assumed cares at 2200. Patient slept well throughout the night. Incontinent X1, uses urinal at bedside. to room at 0530. Denies pain. Cooperative with cares. Follow up:
--- NOTE | 2016-10-12 10:03 | NUR ---
D: Therapeutic Recreation Initial Assessment on the 10/12/16. I: Patient seen for 2 units at 1003 to begin initial evaluation. Pt has dx of CVA with L) side affected with L) neglect. R: Patient's current living situation and status: house in town Home entrance steps: 4 with railing Living with: spouse Spouses name: Giulia # of children: 1 son close by Driving: yes, spouse does drive (car/SUV) Ambulating: I Equipment: N/A Hand Dominance: Right Long Term Care Phlebotomist strength: L) side affected Eye sight: glasses Reading ability: not tested Hearing: [place] has aides but not wearing Speech: clear Cognition: alert Comprehension: fair Following directions: yes Initiating: yes Eye contact: good Affect: bright COMMUNITY INVOLVEMENT: tenriism weekly, out to eat weekly, visit with family/friends, Bible study, 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 shopping, softball games of granddaughters, travel LEISURE INTERESTS: watch TV, read (newspaper, magazines), computer but doesn't use, outdoors work, emory in shop Patient is referred by medical staff for treatment and evaluation in the following areas: Community Skills, Functional Leisure Skills, Participation, Leisure Education/Behaviors, Family Education, Cognitive, Emotional. Information obtained: Interview, Chart Review, Family resource, Observation, other. BARRIERS TO LEISURE: Physical, Transportation, Leisure Skills. Patient determined to be: APPROPRIATE FOR THERAPEUTIC RECREATION ASSESSMENT. TREATMENT WILL INCLUDE: Community living skills training Functional leisure development Physical skills development Cognitive skills development Social skills development Leisure education Emotional/behavioral adaptation Family education Community resources/packet TARGET EQUIPMENT/INFORMATION: Parking Permit to assess need Community Resources Energy conservation in community setting Van/Service/Taxi Scrip Adapted Leisure Equipment Stress management/Relaxation techniques Functional car transfers Leisure Education Behaviors: Attitude, Awareness, Participation. Patient functional skills level and potential: Guarded, pt demonstrates poor mobility with L) neglect and poor safety awareness. Patient oriented ot TR services on Rehab unit. Pt/family provided input into goals setting and plan of care. Pt's goal is to walk and talk. P: Target date set with personal goals established. Will continue with POC focusing on pt/family training and education. For additional information please see Nursing Data Base, PT, OT, CM, ST, initial assessments to [facility] and Interdisciplinary Assessments.
--- NOTE | 2016-10-12 15:07 | NUR ---
Significant Event: Alert. Forgetful at times. 2A scoot transfer. Denies pain. Arm sling on when up. AFO to left ankle. BM today. present throughout the day. Cooperative with cares. Participated in all therapies. Follow up:
--- NOTE | 2016-10-13 03:55 | NUR ---
A/O x 3. Pleasant. Cooperative. at bedside until 1900. Medication taken w Metamucil for easier swallowing w the thicker liquid. Tolerated very well. Continent of urine using the urinal. SCD's on all HS. L side paresis due to CVA w unsuccessful TPA. Rested very well. No c/o's.
--- NOTE | 2016-10-13 09:20 | NUR ---
[facility] Case Management Prefunctioning and Psycho-Social Initial Assessment for 10/08/16, Case Conference Note for 10/12/16 D: Initial Tin Container StraightenerSr. Strategic Sourcing Manager and Case Conference Note. I: Input from: patient, family, Dr. Agrawal, Justine VOSSW R: Reason for admission: CVA---07/23/16, right frontal craniotomy with hematoma evacuation. Admission Date to [facility]: 10/08/16 Admission Date to Hospital: 08/04/16 Prior level of functioning: patient was independent with adl's and household prior to stroke. Prior living situation: house Financial resources/expectations: patient has Medicare and BC/BS. Resources used: none. Resources available: HHC, outpatient therapy, SNF, [facility], [facility], DME Family support available: Andria Understands nature of health condition: yes Recognizes impact of health condition on lifestyle: yes Vocational/Educational: self-employed Behavior/Emotional needs: cues for safety. Monitor for signs and symptoms of depression and anxiety. Legal concerns: none. Discharge goal: home with support. Assessment: Tanner is a 76 year old man from [place], [place] admitted to rehab following a stroke. He has good family support. Family feels that patient will need to go to [facility] in [place], [place] following d/c from [facility]. Will follow and assist as needed. Team conference was held and plan is for patient to remain on [facility] for approx. 3-4 weeks. Orientation to the program and CM services completed with Tanner. Initial plan of care and estimated length of stay discussed, disclosure statement reviewed including patient assessment rights. P: Target date and individual goals established. Please see POC for details. For additional information please see Nursing Data Base, PT, OT, TR, ST, Initial assessments to [facility].
--- NOTE | 2016-10-13 11:40 | NUR ---
D: TR progress note for 10/13/16. I: Pt seen for 2 units at 1102 in group session for education on pain/stress management, coping strategies, and leisure education. R: Pt seen for functional skills building working on stress management, relaxation and education on signs and symptoms of depression to increase awareness on options and promote recovery. Pt actively participated in session, completed functional social communication skills independently which involved personal introduction of self and hometown. Education completed by verbal discussion on the signs and symptoms that physical stress/pain can cause the body and how it affects healing along with identification of coping strategies, relaxation techniques, and options available. Pt worked on scanning L) with good eye contact and communication skills. P: Will continue to see to address goals and plan of care.
--- NOTE | 2016-10-13 16:21 | NUR ---
Significant Event: Pt up to w/c and toilet with scoot, squat pivot transfer, 2 assist, arm sling on with movement and when up in chair and w/c. Pt c/o pain to left wrsit/hand r/t movement. Pt requests to not grab left arm/wrist when helping pt. P.T. stopped using AFO to left foot. Pt pleasant and cooperative with cares. Follow up: activity, safety, use of arm sling and positioning
--- NOTE | 2016-10-14 04:28 | NUR ---
Significant Event: Patient alert and oriented x3. Can be slow to respond at times. Left arm flaccid, slight movement to left leg. Transfers 2 assist pivot. Left arm sling on when up. Only rated pain in left arm 1/10 all shift. About penitentiary through shift, patient using call light about every 30 minutes, was incontinent of urine multiple times and then was able to use urinal other times. Did not sleep much. Vital signs stable. Follow up: encourage bladder training
--- NOTE | 2016-10-14 14:04 | NUR ---
D: TR progress note for 10/14/16. I: Pt seen for 3 units at 936 for community integration skills building, functional transfers, and safety awareness. R: Pt seen for functional skills building working on mobility, safety, awareness and functional transfers to increase independence in anticipation for discharge back into community. Pt given verbal instructions on car transfer technique prior to transfers. Pt transferred from WC to/from vehicle doing squat pivot mod assist with min > mod assist for LLE management with seat surface adapted using trash bag to ease task. Pt tolerated ride with no C/o pain or discomfort with visual scanning task completed with pt needed continuous cues for scanning far L) but independent for midline and R). P: Will continue to see to address goals and plan of care.
--- NOTE | 2016-10-14 14:10 | NUR ---
Significant Event: Pt up in room to toilet and w/c with 2 assist, scoot, squat pivot transfer. Joe. well, Left arm in sling for activity. Minimal c/o pain to left shoulder. Voiding well, large BM today. Pt did not sleep well last noc. Pt pleasand and cooeprative with cares. Follow up: activity, safety, pain management. Arm sling on when up, arm is to be positioned outmard on a pillow if resting.
--- NOTE | 2016-10-15 01:16 | NUR ---
Significant Event: Alert and oriented. Forgetful at times. 2 assist scoot transfer. No IV access. VSS. Does have occasional c/o pain to left arm, but refuses pain medications. Encouraged to keep arm elevated on pillow. Meds given whole in applesauce. Calf pneumatics. Able to use urinal for voiding. at bedside at cares. Alarms on for safety. Pleasant and cooperative w/ cares. Follow up:
--- NOTE | 2016-10-15 13:37 | NUR ---
Significant Event: Alert and oriented. Forgetful at times. Up with 2A scoot transfer. Denies pain. Sling to left arm. Meds whole in applesauce. Continent of bowel and bladder this shift. BM this shift. Cooperative with cares. in room throughout the day. Follow up:
--- NOTE | 2016-10-16 03:17 | NUR ---
Significant Event: Patient is alert and forgetful. Has been inappropriate with some of the staff last night. Patient was asked to stop being inappropriate. Has been alot more appropriate and actually rested more during the night. Is left side effected. Left arm and shoulder flaccid and has alot of pain when moved. Has been given an injection to his L shoulder, patient states it has helped the pain. Is a 2 assist scoot transfer. Takes medtenfarms whole with applesauce. Follow up: Alarm for safety.
--- NOTE | 2016-10-16 15:16 | NUR ---
Significant Event:PATIENT ALERT AND ORIENTED THIS SHIFT. VSS. TRANSFERS WITH 2 ASSIST, GAIT BELT, SCOOT TRANSFER. DOES WELL MOST OF THE TIME. SOMETIMES NEEDS A LOT OF DIRECTION TO GET OVER TO SPOT. AT SIDE ALL SHIFT. LEFT SIDE WEAKER THAN RIGHT. WEARS SLING TO LEFT ARM WHEN UP. UPSET THIS AM THAT PATIENT HAD NOT HAD A SHOWER ALL WEEK. PATIENT DID HAVE A BAG BATH LAST EVENING. DID NOT THINK IT WAS GOOD ENOUGH. SHE GAVE HIM A SPONGE BATH THIS AM AND STARTED TO DRESS HIM. STAFF FINISHED WHEN HE GOT UP FOR BREAKFAST. HAD TOLD WE COULD SHOWER HIM LATER IN THE DAY BUT HE DIDN'T WANT TO WAIT TO GET DRESSED. HAS HAD 2 BM'S THIS SHIFT. NO OTHER COMPLAINTS. Follow up:
--- NOTE | 2016-10-17 02:22 | NUR ---
Significant Event: Patient is A&O. VSS. Has been cooperative with cares. Has been using the call light appropriately. Given a shower last night. Staff very carefull not to get his ears wet or hurt his left arm/shoulder. Uses urinal when in bed is able to use independently but falls asleep while using then spills it. No c/o of pain t/o the night. 2 assist scoot transfer. Takes meds whole with apple sauce. Follow up:
--- NOTE | 2016-10-17 13:43 | NUR ---
Significant Event: Alert and oriented. Forgetful at times. Up with 2A scoot transfer. present this shift. Sling to left arm when up. Denies pain. Family visiting this afternoon. Takes meds whole in applesauce. Cooperative with cares. Follow up:
--- NOTE | 2016-10-18 02:51 | NUR ---
Significant Event: Patient is alert and confused/forgetfull at times. VSS. Denies need for pain med but very protective of his left shoulder/arm/hand. Did have an injection in his shoulder last week with some relief. 2 assist scoot transfer. Uses an arm sling when up. Is incontinent sometimes at night and will spill his urinal. Takes meds whole with apple sauce. Follow up: Labs
[2016-10-18 06:19] LABS: ALBUMIN 3.1 gm/dL (3.5-5.0); ALK PHOS 45 IU/L (33-138); ALT 17 IU/L (12-78); ANION GAP 11.8 (10.0-19.0); AST 13 IU/L (10-40); BLOOD UREA NITROGEN 24 mg/dL (6-24); CALCIUM 8.2 mg/dL (8.5-10.5); CHLORIDE 102 mMol/L (96-110); CO2 27 mMol/L (22-32); ESTIMATED GFR (MDRD EQUATION) > 60; POTASSIUM 3.8 mMol/L (3.7-5.1); SODIUM 137 mMol/L (135-145); TOTAL BILIRUBIN 0.4 mg/dL (0.0-1.5); TOTAL PROTEIN 6.2 g/dL (6.0-8.4)
--- NOTE | 2016-10-18 11:59 | NUR ---
D: TR progress note for 10/18/16. I: Pt seen for 2 units for 1002 leisure education, cognitive thinking task, fine motor skills, and coping skills. R: Pt seen for functional skills building working on sequencing, visual scanning, coordination and fine motor skills using card to increase independence with scanning and motor skills. Pt tested on scanning and identification of cards was 10/10 with 100% accuracy on numbers, could sort in suits with 100% accuracy and completed numerical task bianca-rita utilizing RUE with extra time allotted and cards placed on table. Pt completed matching pattern sheet 05/03 and completed sequence/matching task doing 20/20 with cue line for L) side and verbal cues for scanning L) lower quadrant. Pt able to manage and maneuver cards independently with RUE. Education done utilization of leisure to promote recovery. P: Will continue to see to address goals and plan of care.
--- NOTE | 2016-10-18 13:28 | NUR ---
Patient is alert and oriented, VSS. at bedside most of the time when patient is in room. 2 assist, stand and pivot. L) shoulder/arm is very painful and is in a splint. He takes meds in applesauce. Can be incontinent of urine but has been continent this shift.
--- NOTE | 2016-10-18 14:52 | NUR ---
A-NUTRITION F/U CBW 67.1 KG; STABLE LABS: NA 137, K+ 3.8, GLU 91, BUN 24, SENIOR DRUPAL DEVELOPER 1.0, ALB 3.1, PREALB 33.0 MEDS: ZESTRIL, PROTONIX, KEPPRA, SEROQUEL, METAMUCIL, NORCO, PRN BOWEL MEDS DIET RX: REGULAR W/ENSURE ENLIVE TID. PO INTAKE 75-100% FOR THE MOST PART EST NUTR. NEEDS: [id number] KCALS AND 62-78 GM PROTEIN D-NOT AT NUTRITION RISK; NO NUTRITION DX IDENTIFIED I-CONTINUE W/ENSURE ENLIVE TID TO MAINTAIN NUTRITION STATUS M/E-WILL ASSIST NEEDED
--- NOTE | 2016-10-19 04:16 | NUR ---
Significant Event: A&Ox3, answers questions appropriately but shows signs of forgetfulness. VSS on room air. Denies pain but shows non-verbal signs of pain with repositioning of left arm. Patient needs to be repositioned during the night. INC of urine X1 this shift. Takes meds whole in applesauce. Transfers with 1-2PA stand pivot to wheel chair. Pleasant and cooperative with cares. Alarms on for safety. Follow up:
--- NOTE | 2016-10-19 10:30 | NUR ---
D: TR progress note for 10/19/16. I: Pt seen for 3 units at 934 for cognitive task, use of adaptive equipment of leisure needs, motor skills, sequencing, scanning, coping strategies and functional transfers. R: Pt seen for functional skills building working on sequencing, attention to task, visual scanning, motor skills, and coordination using playing cards to promote recovery with scanning and independence in all task. Pt completed card game "[employer]" with min > mod cues for game's strategy along with adaptive device elderly companion card torres. Pt demonstrated fair motor skills utilizing RUE with cues for attention to task, sequencing and scanning L) with cue line. Education continued on utilization of leisure to promote recovery and for coping. Pt transferred WC >< toilet doing scoot type transfers min assist with cues and dependent for clothing management and hand hygiene. P: Will continue to see to address goals and plan of care.
--- NOTE | 2016-10-19 13:52 | NUR ---
Significant Event: PT ALERT AND ORIENTED. 1-2 ASSIST WITH TRANSFERS. TAKES MEDS IN APPLESUACE. VOIDS WELL BM TODAY IN THE BATHROOM. DIFFERENT SLING PUT ON LT ARM TODAY. IN THE ROOM TO ASSIST WITH CARES. PLEASANT AND COOPERTIVE WITH CARES. Follow up:
--- NOTE | 2016-10-20 03:58 | NUR ---
Significant Event: A&Ox3, forgetful upon waking up at times. Re-orients easily. VSS on room air. Transfers with 2PA to wheelchair. voids per urnial, INC/spills at times. Repositioned as needed. Takes meds whole in applesauce. Left arm in sling when up. Pleasant and cooperative with cares. Follow up:
--- NOTE | 2016-10-20 11:57 | NUR ---
D: TR progress note for 10/20/16. I: Pt seen for 2 units at 1100 in group session for education on safety when around pets/animals, group participation, and leisure education. R: Pt seen for functional skills building working on fine motor skills, scanning, safety awareness and functional social communication in anticipation for discharge back into community/home where animals will be present. Pt independent with personal introduction of self, hometown and sharing with group about past pets. Pt min assist when handling and maneuvering animals during Animal Assisted Therapy utilizing RUE with good bilateral scanning to locate dogs on L) side. Education done on safety with ambulation/mobility in homes when around animals, safety with possibility of poor skin integrity and utilizing pets to assist with coping and stress/pain management when opportunity available. P: Will continue to see to address goals and plan of care.
--- NOTE | 2016-10-20 14:43 | NUR ---
Significant Event: Alert and oriented. Forgetful at times. Up with 2A scoot transfer. Denies pain. Takes meds whole in applesauce. Continent of bowel and bladder this shift. present this shift. Left arm sling on when up. Participated in all therapies. Cooperative with all cares. Follow up:
--- NOTE | 2016-10-21 03:36 | NUR ---
Significant Event: Patient alert and oriented but forgetful. VSS. Up 2 assist scoot transfer. Voids per urinal at night. Will call for help or just to empty it. Left arm flaccid. Has alot of pain in his shoulder and hand, take care in moving it. Wears a sling when up. Denies need for pain meds. Takes meds with apple sauce. Follow up:
--- NOTE | 2016-10-21 12:07 | NUR ---
D: Middleware Systems Architect Team Conference Follow up for 10/19/16 I: Input from patient/family R: Met with: patient, family, Justine Rudd CNC MAINTENANCE TECHNICIAN Discussed rehab plan, patient progress, discharge plan and estimated length of stay of d/c planned in approx. 3 weeks. Patient/Family Preference: In agreement. Anticipated discharge disposition: most likely [facility] in [place], [place]. Education completed: Education was completed with patient and family regarding length of stay, progress in therapy and d/c plan. Assessment/Recommendation: Team recommends d/c in approx. 3 weeks. P: Case Coordination: Tanner is a 76 year old man from [place], [place] admitted after a stroke. He has good family support. Plan is d/c to SNF in [place] on dismissal. Will follow and assist as needed.
--- NOTE | 2016-10-21 14:44 | NUR ---
Significant Event: PATIENT UP 2 ASSIST, SLIDE TRANSFER. SLING TO LEFT ARM, LEFT ARM FLACCID, NUMB AND TINGLY. AT BEDSIDE. PATIENT CALLS APPROPRIATELY, FORGETFUL AT TIMES. NEEDS REPEATED DIRECTIONS WHEN TRANSFERRING. HAS NOT BEEN INCONTINENT TODAY. BM X2. DENIES PAIN. VITALS STABLE ON ROOM AIR. MECLIZINE GIVEN FOR DIZZINESS. CT DONE TODAY DUE TO DIZZINESS, NO ABNORMAL FINDINGS. AFO IN LEFT SHOE. Follow up:
--- NOTE | 2016-10-22 03:13 | NUR ---
Significant Event: Patient is alert and forgetfull sometimes confused. VSS. Up two assist scoot transfer. Left arm flaccid, wears a sling when up, has a new hand splint to use. Wore it until around 0100 then wanted it off. Voids per urinal while in bed. Was incontinent x 1. Denies pain or discomfort. Had an episode of dizziness yesterday had a CT done. New order now for Meclizine for his dizziness. AFO to left shoe. present most of day very involved in his care. Follow up:
--- NOTE | 2016-10-22 13:54 | NUR ---
Significant Event: Patient is alert/oriented x 3. Forgetful. has been in room most of day with patient. Moving 2A slide/scoot/pivot transfer. Has had 2 BMs so far today. Patient needs to be reminded to move feet before just leaning into where he is supposed to sit. Left arm is flaccid, has it in sling throughout day. Meds with applesauce. Voids per urinal at night, uses bathroom during day a lot. No complaints of pain. Did have dizziness feeling this morning. Gave antivert this AM, did feel better afterwards. Follow up:
--- NOTE | 2016-10-23 04:08 | NUR ---
Significant Event: Patient alert and oriented but forgetful at times. Transfers 2A scoot/pivot. L) arm flaccid, wears sling during day and splint at night when in bed. Is to be monitored for breakdown. L) foot flaccid, AFO during day. Takes meds whole in applesauce. Uses urinal at night, with 1X spilling. Denies pain. Cooperative with cares. at bedside until late evening. Follow up:
--- NOTE | 2016-10-23 11:53 | NUR ---
Significant Event:Pt continues to transfer with 2 assist, slide/scoot/pivot transfer, with guidence to move exp. left foot/leg, and leans to the left. Left arm remains in the sling due to flaccid. Meds given whole in applesauce. Room air during the day, and O2 @ noc. Voids during the day in the BR and @ noc uses urinal. Did not complain about dizziness this am, but was worried he would feel dizzy. Wears splint @ noc, on left arm. Pt has been plesant and cooperative with plan of care. Follow up:pain control, transfers 2 assist, sling left arm day/splint noc.
--- NOTE | 2016-10-24 04:25 | NUR ---
Significant Event: Patient alert and oriented, can be confused at times. Transfers 2A scoot/pivot transfers. Sling removed and splint applied to L) arm, arm continues to be flaccid. AFO to L) foot removed. Meds given whole in applesauce. PRN robitussin given at 2022 for cough. Void per urinal with one bedchange. Cooperative with cares. Follow up:
--- NOTE | 2016-10-24 13:51 | NUR ---
Significant Event: Kate, assisted pt with sponge bath this am. Transfers with 2 assist slide/scoot/pivot transfer with guidance specially to guide left foot/leg. Takes meds whole with applesauce. Chest x ray taken this am, lungs clear. During the day voids in the BR and urinal @ noc. Has not complained of any dizziness this shift. Pt has been plesant and cooperative with plan of care. Left extremities remain weak/flaccid. Follow up:pain control, transfers 2 assist, sling left arm day/splint @ noc.
--- NOTE | 2016-10-25 04:43 | NUR ---
Alert and forgetful of short term memory at times. Uses call light approprietly. Is 2 person scoot assist transfer. Takes Robitussin prn. Last given at 0045. Also has cough drops available. Chest x-ray neg yesterday. Left upper extremity flaccid. Isotoner glove and left arm sling on when up. Splint at night. Takes med whole in applesauce. Refused Metamucil last night. Slept well.
[2016-10-25 05:32] LABS: BASOPHIL % 0.4 %; EOSINOPHIL # 0.2 K/uL (0.0-0.5); EOSINOPHIL % 1.9 %; HEMATOCRIT 37.1 % (37.0-53.0); HEMOGLOBIN 12.3 g/dL (11.0-16.0); IMMATURE GRANULOCYTE # 0.1 K/uL (0.0-0.3); IMMATURE GRANULOCYTE % 0.5 %; LYMPHOCYTE # 2.8 K/uL (0.8-4.0); MCH 32.7 pg (27.0-34.0); MCHC 33.2 gm/dL (32.0-36.5); MCV 98.7 fl (83.0-98.0); MONOCYTE # 1.2 K/uL (0.0-1.0); MONOCYTE % 10.4 %; MPV 10.2 fl (9.4-12.4); NEUTROPHIL % 61.8 %; NRBC % 0 /100WBC (0-0.00); PLATELET COUNT 205 K/uL (150-450); RBC 3.76 M/uL (3.50-5.50); RDW-CV 13.4 % (11.9-14.6); WBC 11.4 K/uL (4.0-11.0)
[2016-10-25 05:54] LABS: ALBUMIN 2.9 gm/dL (3.5-5.0); ALK PHOS 49 IU/L (33-138); ALT 13 IU/L (12-78); ANION GAP 10.9 (10.0-19.0); AST 9 IU/L (10-40); BLOOD UREA NITROGEN 20 mg/dL (6-24); CALCIUM 8.4 mg/dL (8.5-10.5); CHLORIDE 103 mMol/L (96-110); CO2 28 mMol/L (22-32); ESTIMATED GFR (MDRD EQUATION) > 60; POTASSIUM 3.9 mMol/L (3.7-5.1); SODIUM 138 mMol/L (135-145); TOTAL PROTEIN 6.2 g/dL (6.0-8.4)
[2016-10-25 05:56] LABS: TOTAL BILIRUBIN 0.5 mg/dL (0.0-1.5)
--- NOTE | 2016-10-25 14:30 | NUR ---
Significant Event:PATIENT ALERT AND ORIENTED BUT IS FORGETFUL. VSS. TRANSFERS WITH 1-2 ASSIST, GAIT BELT, SCOOT TRANSFER. WEARS SLING WHEN UP. HAS DENIED PAIN THIS SHIFT. RESTS IN WHEELCHAIR OR IN BED WHEN NOT IN THERAPY. AT BEDSIDE MOST OF THE SHIFT. WAS GONE FOR AWHILE THIS AM. NO OTHER COMPLAINTS. Follow up:
--- NOTE | 2016-10-26 03:28 | NUR ---
Significant Event: Patient alert and can be forgetful. VSS. Transfers 1-2 assist scoot. Left side effected left arm is flaccid. Wears a sling when up and has a left hand splint he wears most of the night. Denies pain or discomfort. Uses call light appropriatly. Has cough med or lozengers for his cough. Uses urinal at night, can be incontinent or spills his urinal at times. present most of the day assist with cares. Follow up:
--- NOTE | 2016-10-26 11:25 | NUR ---
Significant Event: Patient alert and oriented. Forgetful. Slow to respond at times. 2 assist scoot transfer. Left arm is flaccid. Left leg is weak. Wears sling to left arm during the day. at bedside. Follow up:
--- NOTE | 2016-10-26 15:45 | NUR ---
D: TR progress note for 10/26/16. I: Pt seen for 2 units at 1300 for community integration skills building, functional transfers, and safety awareness. R: Pt seen for functional skills building working on mobility, safety, awareness and functional transfers to increase independence in anticipation for discharge back into community. Pt transferred from WC to/from vehicle doing squat pivot mod assist with max cues and extra time allotted due to processing problems and min assist for LLE management with seat surface adapted using trash bag to ease task. Pt tolerated ride with no C/o pain or discomfort with again max cues for scanning L). P: Will continue to see to address goals and plan of care.
--- NOTE | 2016-10-27 04:18 | NUR ---
Significant Event:Transfers with 1-2 scoot, continues to improve with transfers--does need verbal cues at times. Left arm/hand flaccid, no movement or grasp, slight edema to hand/fingers. Splint applied at 2034, adjusted x 1.Moves left leg slightly. Takes pills whole in applesauce. Cepacol given at hs for dry cough. Lt hand numb, no tingling to extremities. Last bm on , po 520 ml. Output of voids x 6, incontinent/spillage x 1 with bed linen change. Turned q 2-3 hrs. Follow up: Transfers, use of sling to left arm when up.
--- NOTE | 2016-10-27 11:25 | NUR ---
Significant Event:Pt continues to be alert and orientated with forgetfulness. Continues to speek in monotone voice, expresses needs well. Kate remains very attentive, and with pt majority of the day. @ assist scoot for transfers, with left side arm flaccid in sling, and left leg very weak. No change in assessment note charting. Pt has been pleasant and cooperative with plan of care. Follow up:occasional urine spills, uses urinal @ noc, BR during the day. Pain control
--- NOTE | 2016-10-27 11:43 | NUR ---
D: TR progress note for 10/27/16. I: Pt seen for 2 units at 1100 in group session for education on pain/stress management, coping strategies, group participation and leisure education. R: Pt seen for functional skills building working on stress management, relaxation and education on signs and symptoms of depression to promote recovery. Pt actively participated in session, completed functional social communication skills independently which involved personal introduction of self and hometown. Education completed by verbal discussion on the physical stress/pain can cause the body and how it affects healing along with identification of coping strategies, relaxation techniques, and options available. Pt initiated scanning L) for eye contact with peers/Therapist. P: Will continue to see to address goals and plan of care.
--- NOTE | 2016-10-28 03:32 | NUR ---
Significant Event: Patient is alert and can be forgetful. VSS. Up 1-2 assist scoot transfer. Left side effected from his CVA, Left arm flaccid, left leg weak. Wears a sling to his arm when up and an AFO in his shoe. Takes meds whole in applesauce. Cepacol given for his cough. C/O yesterday he injured his left ribs from coughing, is very worried about it. Uses urinal at night is occasionally incontinent or spills his urinal. No accidents so far tonight. is present during the day and assist with cares. Follow up:
--- NOTE | 2016-10-28 09:32 | NUR ---
D: Playback Operator Team Conference Follow up for 10/26/16 I: Input from patient/family R: Met with: patient, family, Justine Rudd STATIONARY FIREMAN Discussed rehab plan, patient progress, discharge plan and estimated length of stay of d/c planned in approx. 2 weeks. Patient/Family Preference: Patient and are in agreement. Anticipated discharge disposition: [facility] in [place], [place]. Education completed: Education was completed with patient and family regarding length of stay, progress in therapy and d/c plan. Assessment/Recommendation: Team recommends 2 more weeks. P: Case Coordination: Tanner is a 76 year old man from [place], [place] admitted after a stroke. He has great family support. Plan is to d/c to [facility] on discharge. Will follow and assist as needed.
--- NOTE | 2016-10-28 15:52 | NUR ---
Significant Event: PATIENT IS ALERT/ORIENTED X 3. FORGETFUL, SLOW TO PROCESS AT TIMES. NO INCONTINENT ISSUES TODAY. HAD BM EARLIER TODAY. NO IV ACCESS. DID LEAVE FOR LENGTH THIS MORNING INTO AFTERNOON. SON CAME TO SEE PATIENT TODAY. DID LAY DOWN AROUND 1515 FOR ABOUT AN HOUR BEFORE APHASIA GROUP. PATIENT DID TAKE A COUGH DROP TODAY AND TOOK SOME TYLENOL AROUND 1030 FOR PAIN IN THE LEFT RIBS AND LEFT FOOT AND TOES. Follow up:
--- NOTE | 2016-10-29 02:24 | NUR ---
Significant Event: Patient is alert and oriented is forgetful. VSS. Up 1-2 assist pivot transfer. Has been c/o of left rib pain from coughing to hard. Has been taking Tylenol for this, last given at bedtime last night. Wears a sling to his left arm and an AFO to his left foot when up. Has a splint he wears at night, has been tolerating this well. Voids per urinal at night, spills it at times. Has been sleeping better during the night. is present during the day and assist with cares. Follow Up:
--- NOTE | 2016-10-29 12:25 | NUR ---
D: TR progress note for 10/29/16. I: Pt seen for 2 units at 1100 for visual scanning, motor skills, cognitive thinking, attention to task and functional transfers. R: Pt seen for functional skills building working on motor skills, scanning and coordination doing new leisure task of word searches to improve scanning, attention and increase independence with leisure task. Task was adapted to assist with visual problems by use of cue line and limited words to only 8 words in a 6x6 square. Pt able to completed task with extra time allotted with noted words completed on R) done first. Pt demonstrated poor motor skills and coordination when circling words and would miss end letter 3/8x. Pt able to read each word independently but cues needed for attention to task x3. Pt transferred WC >< toilet doing scoot type transfers CGA, dependent for clothing management and SBA for hand hygiene from . P: Will continue to see to address goals and plan of care.
--- NOTE | 2016-10-29 13:36 | NUR ---
Significant Event: PATIENT UP 2 ASSIST SCOOT TRANSFER. NEEDS CUEING TO COMPLETE TASKS. VERY MONOTONE VOICE. VITALS STABLE ON ROOM AIR. BM X2 TODAY. HAS BEEN CONTINENT OF BOWEL AND BLADDER TODAY. FLACID TO LEFT SIDE. AFO TO LEFT LEG. SLING TO LEFT ARM, BRACE AT NIGHT. TYLENOL THIS AM FOR RIB PAIN. PILLS WHOLE IN APPLESAUCE. TOLERATES EATING WELL. HELPS WITH CARES OFTEN. Follow up:
--- NOTE | 2016-10-30 04:29 | NUR ---
Alert and cooperative with cares. Calls for assistance as needed. No incontinent voids this shift. Left side flaccid. Is 2 assist scoot transfer. Takes pills whole in applesauce. here during day and involved with cares. Had shower last evening.
--- NOTE | 2016-10-30 14:45 | NUR ---
Significant Event: Pt up in room with 1 assist, scoot transfer to w/c and toilet, herbert. well. Left arm sling and LLE AFO on when up. Arm stretched out on pillows when in bed. REsted this afternoon. Continent t/o day. Pt takes pills whole in applesauce. Pt has cough at times, has cough drops and on mucinex. Pt pleasant and cooperative with cares. Follow up: activity, safety.
--- NOTE | 2016-10-31 05:03 | NUR ---
Significant Event:Moves with one assist/scoot transfer. Sling to left arm and AFO in left shoe when up. Left arm in splint at hs, elevated on pillow. No handgrasp or arm movement. Takes pills whole in applesauce. Liquid tylenol given at 2028 for c/o discomfort to left shoulder, rated at 3. Occasionally has dry tickle-type cough, declined cough drop--is on mucinex. Urine output 650 ml, oral intake 360 ml. BM last evening. Did adjust position after being turned too far to the right, as had c/o left shoulder discomfort around 0400--refused heat or tylenol. Follow up:Activity/transfers, safety.
--- NOTE | 2016-10-31 15:09 | NUR ---
Pt awake during rounds, having coffee with his . Pt transfered with 1 assist, scoot transfer to w/c and assist some in BR. Left arm sling on when up and LLE AFO on when up. Pt reported when he was turned last noc, his left shoulder hurt during the move, and it was a little sore today and has taken some pain meds. Pt has not asked for any cough drops as of this time. Takes meds whole in applesauce. Has rested some in bed during the day, also around unit per pushing wheel chair for change of scenery. Kate good support. Pt assessment unchanged, note charting. Pt has been pleasant and cooperative with plan of care.
--- NOTE | 2016-11-01 03:58 | NUR ---
Significant Event:Scoot pivot transfer with 1-2 assist, sling to left arm. Wears splint to left hand/lower arm through night hours with elevation on pillow. Left hand without grasp, no movement in arm/fingers. Denies numbness/tingling to all extremities. Takes meds whole with applesauce. Given tylenol at 2028 for c/o left rib discomfort from c/o cough, minimal coughing heard. No c/o left shoulder or arm pain. 780 po intake, 800 ml output plus 2 voids in bathroom and large incontinence after sleeping 3 hrs. Last bm on . plans to go to [employer] today and do his laundry/fuzzy blanket. Follow up:Support left arm/shoulder with repositioning/pillows, doesn't like to be turned too far on either side especially the left side.
[2016-11-01 06:15] LABS: ALK PHOS 47 IU/L (33-138); ALT 13 IU/L (12-78); ANION GAP 11.9 (10.0-19.0); AST 10 IU/L (10-40); BLOOD UREA NITROGEN 14 mg/dL (6-24); CALCIUM 8.3 mg/dL (8.5-10.5); CHLORIDE 105 mMol/L (96-110); CO2 26 mMol/L (22-32); CREATININE 1.1 mg/dL (0.6-1.3); ESTIMATED GFR (MDRD EQUATION) > 60; POTASSIUM 3.9 mMol/L (3.7-5.1); SODIUM 139 mMol/L (135-145); TOTAL BILIRUBIN 0.4 mg/dL (0.0-1.5); TOTAL PROTEIN 6.3 g/dL (6.0-8.4)
--- NOTE | 2016-11-01 13:12 | NUR ---
Significant Event: PATIENT ALERT AND ORIENTED X3. UP 1-2 ASSIST SLIDE TRANSFER. CONTINENT OF BOWEL AND BLADDER. CALLS APPROPRIATELY. UP TO THE BATHROOM OFTEN. MEDS WHOLE IN APPLESAUCE. TYLENOL GIVEN THIS AM. CEPACOL COUGH DROPS PRN. VITALS STABLE ON ROOM AIR. BM TODAY. TOLERATES MEALS WELL. AFO TO LEFT FOOT, SLING TO LEFT LEG. SLIGHT MOVEMENT TO LEFT ARM AND LEG. AT BEDSIDE, HELPFUL. Follow up:
--- NOTE | 2016-11-01 16:20 | NUR ---
A-NUTRITION F/U C/O COUGHING; MUCINEX STARTED. LABS: PREALB 25.0; WNL DIET RX: REGULAR W/ENSURE ENLIVE TID. PO INTAKE 50-100% OF MEALS. TAKES ENSURE ENLIVE WELL. D-NOT AT NUTRITION RISK; NO NUTRITION DX IDENTIFIED I-ENSURE ENLIVE TO MAINTAIN NUTRITION STATUS M/E-GOAL: PO INTAKE 50-100% FOR DURATION OF ADMIT WILL ASSIST NEEDED
--- NOTE | 2016-11-02 04:38 | NUR ---
Alert and oriented but forgetful at times. Uses call light approriately. 1-2 assist slide transfer. Takes meds whole in applesauce. Tylenol given at hs. Tensilon pearls given at 2350. Order to d/c Lisinpril, which may be aggrevating pts cought, to Amlodipine. Remained cont of baldder this shift. with small bm at hs.
--- NOTE | 2016-11-02 14:06 | NUR ---
D: TR progress note for 11/02/16. I: Pt seen for 2 units at 1304 for visual scanning, leisure participation, fine motor skills, sequencing and coping skills. R: Pt seen for functional skills building working on fine motor skills and coordination to improve dexterity, visual scanning, sequencing and coping strategies to promote recovery with leisure task. Pt completed motor game dominoes min assist needing cues for counting correctly, scanning L) and to identify and sequencing moves. Pt utilized RUE demonstrating good fine motor skills and coordination with use of adaptive tray torres. Pt was independent with attention to task and simple math with fair social interaction. P: Will continue to see to address goals and plan of care.
--- NOTE | 2016-11-02 16:27 | NUR ---
Significant Event: Alert and oriented x 3. Up with 1-2A scoot transfer. Tylenol given this AM. Meds whole in applesauce. BM today. Continent of bowel and bladder. Uses call light appropriately. in room this shift. No need for cough medicine this shift. Follow up:
--- NOTE | 2016-11-03 02:49 | NUR ---
Significant Event: Patient is alert and orient can be forgetful. VSS. Up 1-2 assist scoot transfer. Has had some c/o of left rib pain, has been taking Tylenol for this. Has had a cough, new order to DC his Lisinopril and start on Norvasc. Takes meds in applesauce. present during the day attentive to his needs. Follow up:
--- NOTE | 2016-11-03 11:44 | NUR ---
D: TR progress note for 11/03/16. I: Pt seen for 2 units at 1100 in group session for education on safety when around pets/animals, and leisure education. R: Pt seen for functional skills building working on fine motor skills, scanning, safety awareness and functional social communication in anticipation for discharge back into community/home where animals will be present. Pt independent with personal introduction of self and sharing with group about past pets. Pt choose not to handle animals during Animal Assisted Therapy. Education and review done on safety with ambulation/mobility in homes when around animals, safety with possibility of poor skin integrity and utilizing pets to assist with coping and stress/pain management when opportunity available. P: Will continue to see to address goals and plan of care.
--- NOTE | 2016-11-03 11:49 | NUR ---
Significant Event:Alert and orientated x 3. Up with 1-2 scoot transfer. Pt takes meds whole in applesauce. BM large, continent BM & bladder. Uses call light appropriately. off unit mid am to mid afternoon, pt notifies staff for needs. Has been pleasant and cooperative with plan of care. Still complains of the left rib soreness, cough occasional, non productive. Follow up:pain control, meds whole in applesauce.
--- NOTE | 2016-11-04 02:44 | NUR ---
Significant Event: Patient is alert and oriented, forgetful at times. VSS. Up 1-2 assist scoot transfer. Takes meds with applesauce. Wears a sling to his left arm when up and a splint t/o the night. Has an AFO to his left foot when up. Uses urinal at night is is mostly continent but will spill his urinal at times. can in yesterday morning with hives and had to see the Dr about them they were very bad. Was not present yesterday afternoon. Patient has been cooperative with cares and has been sleeping better the past few nights. Has been taking Tylenol for rib pain but may be helping him sleep better. Cough is getting better. Lisinopril has been changed to Norvasc. Follow up:
--- NOTE | 2016-11-04 11:54 | NUR ---
D: TR progress note for 11/04/16. I: Pt seen for 4 units at 930 for community integration skills building, functional transfers, and safety awareness. R: Pt seen by (OT/TR) for functional skills building working on mobility, safety, awareness and functional transfers to increase independence in anticipation for discharge back into community. Pt transferred by OT WC >< toilet CGA > min assist with cues, min assist for clothing management and SBA for hand hygiene from . Pt transferred from to/from vehicle doing scoot/pivot min > CGA with max verbal cues and extra time allotted with modeling due to processing problems. Pt was min assist for LLE management with seat surface adapted using trash bag to ease task. Pt tolerated ride with no C/o pain or discomfort. P: Will continue to see to address goals and plan of care.
--- NOTE | 2016-11-04 15:41 | NUR ---
Significant Event: PATIENT IS ALERT/ORIENTED X 3, FORGETFUL. SEEMS TO BE DOING BETTER WITH TRANSFERS. HAVEN'T HEARD COUGH MUCH TODAY. DOES HAVE AREA BEHIND LEFT EAR THAT HE SAYS "HURTS WHEN YOU TOUCH IT". AREA IS CLOSED, NOTHING TO NOTE OTHER THAN TENDERNESS TO PATIENT. MOVES 1-2 ASSIST PIVOT AND DOES FAIRLY WELL WITH THIS. Follow up:
--- NOTE | 2016-11-05 05:15 | NUR ---
Alert and oriented. Calls for assistance as needed. Occas forgetful. Pleasant and talkative tonight. Appreciative of cares. Is 1-2 person scoot transfer. Takes meds whole in applesauce. No incont and does well handling urinal independently tonight. will not be in untl later today after her own Drs appt.
--- NOTE | 2016-11-05 12:16 | NUR ---
Significant Event: PATIENT UP 1-2 ASSIST SLIDE TRANSFER. ALERT AND ORIENTED X3, SLIGHTLY FORGETFUL. PATIENT TOLERATES ACTIVITY BETTER WHEN HIS IS HERE. SHOWERED WITH THERAPY. FEEDS SELF WELL. PILLS WHOLE IN APPLESAUCE. BM X2 TODAY. CONTINENT OF BOWEL AND BLADDER. VITALS STABLE ON ROOM AIR. SLING TO LEFT ARM, AFO TO LEFT LEG. EDEMA GLOVE TO LEFT HAND. Follow up:
--- NOTE | 2016-11-05 14:04 | NUR ---
D: Sailor Team Conference Follow up for 11/02/16 I: Input from patient/family R: Met with: patient, family, Dr. Agrawal, Justine Valentine BOAT HAND Discussed rehab plan, patient progress, discharge plan and estimated length of stay of d/c in approx. 2 weeks. Patient/Family Preference: Patient and family are in agreement. Anticipated discharge disposition: [place], [place]. Education completed: Education was completed with patient regarding length of stay, progress in therapy and d/c plan. Assessment/Recommendation: Team recommends d/c in approx. 2 weeks. P: Case Coordination: Tanner is a 76 year old woman from [place], [place] admitted after a stroke. He has good family support. Plan is d/c to [facility] upon d/c. Will follow and assist as needed.
--- NOTE | 2016-11-06 04:16 | NUR ---
Significant Event:Was in bed when i came on last eveing,edema glove removed with hand/arm splint applied to left arm. 2+ edema to left hand/arm. 1+ edema to lower legs/feet.No bruising to lower left foot/ankle (pt had been fitted with a different AFO walking brace yest, monitor for skin issues).C/o left rib discomfort with turns/taking deep breath. Gave scheduled hs tylenol at 2019. effective. Scoot transfer with 1 assist. Slept hard x 2 hrs, incontinent of urine x 1, voided x 5, had bm on the . Follow up:Pills whole in applesauce.Use of sling to left arm, afo to left foot when up.
--- NOTE | 2016-11-06 14:53 | NUR ---
Significant Event: PATIENT UP 1-2 ASSIST SLIDE TRANSFER. SLING TO LEFT ARM, EDEMA GLOVE LEFT HAND, AFO LEFT FOOT. MAY USE MARTHA WALKER TO WALK IF DESIRED. CONTINENT OF BOWEL AND BLADDER. UP TO BATHROOM MANY TIMES. AT BEDSIDE. TYLENOL PRN FOR PAIN. APPLESAUCE WITH MEDS. WEAK TO LEFT SIDE, TRANSFERS BETTER TO RIGHT. VITALS STABLE ON ROOM AIR. Follow up:
--- NOTE | 2016-11-07 03:57 | NUR ---
Patient alert and oriented, forgetful at times. Transfers 1-2A slide. Splint to L) hand at night, and sling/isotoner glove during the day. AFO to L) foot during the day. Took tylenol with HS pills. Woke up in the middle of the night confused and stated he had a bad dream/hallucinations and related it back to the tylenol. Was having some pain but refused to take more tylenol. Requested to take off splint, and was encouraged to keep it on for a little bit longer but refused. Bed change X1, uses urinal at bedside. Cooperative with cares. VSS on room air.
--- NOTE | 2016-11-07 14:31 | NUR ---
Significant Event: PATIENT UP 1-2 SCOOT TRANSFER. ALERT AND ORIENTED X3 BUT FORGETFUL AT TIMES. NEEDS A LOT OF CUEING WHEN TRANSFERRING. AFO TO LEFT LEG, SLING AND EDEMA GLOVE TO LEFT ARM. DENIES PAIN. TYLENOL DC'D TODAY BECAUSE THE PATIENT STATED IT MADE HIM HALUCINATE. ULTRAM ORDERED. MEDS IN APPLESAUCE. AT BEDSIDE, HELPFUL. Follow up:
--- NOTE | 2016-11-08 04:20 | NUR ---
Patient alert and oriented, but forgetful at times. Transfers 1-2 assist scoot. Wears sling and Afo on L) side when transfering. Splint to L) hand at night. Edema glove removed at night. Takes meds in applesauce, denies pain. Voids per urinal at night. Bed change x1. VSS. Cooperative with cares.
[2016-11-08 06:04] LABS: ALK PHOS 47 IU/L (33-138); ALT 18 IU/L (12-78); ANION GAP 13.9 (10.0-19.0); AST 12 IU/L (10-40); BLOOD UREA NITROGEN 12 mg/dL (6-24); CALCIUM 8.5 mg/dL (8.5-10.5); CHLORIDE 105 mMol/L (96-110); CO2 26 mMol/L (22-32); CREATININE 0.9 mg/dL (0.6-1.3); ESTIMATED GFR (MDRD EQUATION) > 60; POTASSIUM 3.9 mMol/L (3.7-5.1); SODIUM 141 mMol/L (135-145); TOTAL PROTEIN 6.3 g/dL (6.0-8.4)
[2016-11-08 06:05] LABS: TOTAL BILIRUBIN 0.3 mg/dL (0.0-1.5)
--- NOTE | 2016-11-08 13:23 | NUR ---
A-NUTRITION F/U EDEMA GLOVE TO L)HAND. (+)BM CBW 68.0; WT UP SLIGHTLY FROM LAST WEEKS 66.9 KG LABS: PREALB 29.0; THIS IS UP FROM 25.0 DIET RX: REGULAR W/ENSURE QD AT [facility]. PO INTAKE 75-100% FOR THE MOST PART. TAKES ENSURE ENLIVE 50-100%. EST NUTR NEEDS: 3513-5215 KCALS AND 62-78 GM PROTEIN D-NOT AT NUTRITION RISK; NO NUTRITION DX IDENTIFIED I-CONTINUE W/ENSURE ENLIVE AT [facility] TO MAINTAIN NUTRITION STATUS M/E-WILL ASSIST NEEDED
--- NOTE | 2016-11-08 13:56 | NUR ---
Significant Event: PATIENT IS ALERT/ORIENTED X 3. PATIENT REFUSED AFO THIS MORNING BECAUSE IT HURT. TOLD KARIN WITH THERAPY THIS AND SHE TOOK IT UPSTAIRS WITH HIM TO THERAPY. VSS, DOES STILL HAVE COUGH THAT WON'T GO AWAY. HAS BEEN MOVING FAIRLY DECENT TODAY. WANTS TO GO HOME BY END OF WEEK HOPEFULLY. Follow up:
--- NOTE | 2016-11-09 05:19 | NUR ---
Patient alert and oriented, but forgetful at times. Transfers 1-2A scoot pivot. Wears AFO, Sling, and edema glove during the day. Splint at night. Large incontinence X1. Slept hard for majority of the night. Uses urinal at bedside. VSS. Cooperative with cares.
--- NOTE | 2016-11-09 16:01 | NUR ---
D: TR progress note for 11/09/16. I: Pt seen for 2 units at 1300 for visual scanning, motor skills, coping strategies and functional social communication. R: Pt seen for functional skills building working on scanning, motor skills, socialization and coping doing matching adaptive puzzles to increase independence with scanning L) and to promote recovery in all task. Pt able to complete with SBA > min cues utilizing RUE with cues for visual scanning L). Pt independent with maneuvering puzzle pieces with RUE, good ROM when extending across table to retrieve pieces and good attention to task. Pt noted to initiate comments with bright affect and good facial expressions. P: Will continue to see to address goals and plan of care.
--- NOTE | 2016-11-09 17:56 | NUR ---
Significant Event:PATIENT ALERT AND ORIENTED THIS SHIFT. VSS. TRANSFERS WITH 1 ASSIST, GAIT BELT AND SCOOT TRANSFER. WEARS LEFT ARM IN SLING WHEN TRANSFERRING. TOLERATING THERAPY WELL. WEARS AFO ON LEFT FOOT WHEN UP. COMPLAINS AT TIMES OF PAIN AT HIS ANKLE. AFO ADJUSTED TODAY AND FITS VERY WELL. NEEDS LOTS OF POSITIVE REINFORCEMENT REGARDING FIT. HELPS PATIENT ALOT. NO OTHER COMPLAINTS. Follow up:
--- NOTE | 2016-11-10 02:25 | NUR ---
Significant Event:1-2 assist with scoot transfer, use of afo boot to left foot and sling with edema glove during the day. Uses arm/hand splint at night. Voids per urinal 100-300 ml amts, no incontinence. Refused tylenol, c/o aching low back which improved with repositioning. Denies n/t to left arm or leg, slight movement of left leg, no ability to wiggle left toes. Left arm tight/somewhat contracted until massage and gentle motion releases some of the tightness. Unable to grasp with left hand. Cooperative. does his laundry. Follow up:request paula bah or marleny navarrete for aching muscles.
--- NOTE | 2016-11-10 10:04 | NUR ---
D: Technical Instructor Course Developer Team Conference Follow up for 11/09/16 I: Input from patient/family R: Met with: patient, family, Justine Rudd HYDRODYNAMICIST Discussed rehab plan, patient progress, discharge plan and estimated length of stay of d/c planned next week. Patient/Family Preference: patient and family are in agreement with this plan. Anticipated discharge disposition: d/c to [facility] next week. Education completed: Education was completed with patient regarding length of stay, progress in therapy and d/c plan. Assessment/Recommendation: Team recommends d/c next week to [facility] in [place], [place]. P: Case Coordination: Working on d/c to [facility] next week. Patient and family are in agreement with this plan. Will follow.
--- NOTE | 2016-11-10 15:22 | NUR ---
Significant Event:PATIENT ALERT AND ORIENTED THIS SHIFT. VSS. TRANSFERS WITH 1 ASSIST, GAIT BELT SCOOT. IS NOW TO START WALKING WITH STAFF. HAS BEEN VERY FIXATED TODAY ON HIS MEDS AND PAIN. WAS NOT GOING TO TAKE HIS MEDS DUE TO IT HAVING TITANIUM IN IT POSSIBLY. REASSURED PATIENT REGARDING ALLERGY LISTED IN CHART AND HOW PHARMACY CROSS REFERENCES THEM WITH MEDS. HAS BEEN A LITTLE CONFUSED TODAY. WON'T TAKE ANY PAIN MEDS FOR PAIN BUT DOES COMPLAIN OF LOW BACK PAIN. AT BEDSIDE ALL SHIFT. NO OTHER COMPLAINTS. Follow up:
--- NOTE | 2016-11-11 03:31 | NUR ---
Significant Event:2 assist scoot transfer, use of AFO in left shoe, sling to left arm/hand with transfers. Has voided x 6, spilled urinal x 3 with bed changes. Last bm on , po intake 600 ml. No choking/coughing issues. Hand splint on at hs, removed at 0200 per request. Pt seemed very needy and calling frequently with issues of spillage, then stated he'd just quit using it. Explained that wasn't really a good option if there was a consideration of discharge next week. Had denied pain til 02, then reports low back pain--given back rub and states back pain is in shoulder blade area. Obtained warm blanket, gave massage to entire back area. At times some redness present to coccyx, blanches, aloevesta applied. Takes meds whole in applesauce. Doesn't like to use pain meds as even tylenol causes hallucination pt states. Was agreeable to Tramadol at 0210 for pain rated at 6 to low back---sleeping after. Follow up: Obtain order for Jaspreet/Shelbi for topical pain relief option. Is to wear edema glove to left hand during day.
--- NOTE | 2016-11-11 09:20 | NUR ---
Significant Event:Pt sleeping during rounds, awoke and dressed before first therapy @ 07. not present so far this am, pt reported she was going to the MD again for her rash, and would be in later. Pt alert and orietated has good recall. Note pt can be easily distracted if giving meds, or dressing pt. No noted cough this am. Continues to be transfered with 1 assist, scoot transfer. AFO in left shoe for support during tranfers. Pt continues to have some spillage of urine, maribel when by self, usually uses the BR during the day. Monitor coccyx area, reposition freq. which usually occurs due to pt frequent requests. Takes meds whole in applesauce. Pt has been pleasant and cooperative with plan of care. Follow up:pain control, edema glove during the day. topical rub for discomfort.
--- NOTE | 2016-11-12 03:11 | NUR ---
Significant Event: Patient alert and oriented x 3, VSS. 1-2 assist scoot transfer. Given Ultram at bedtime and slept very well. Had to wake him to use the urinal. Has been continent all night. Wears sling to his left arm and a AFO to his left foot when up. Also needs to wear his edema glove to his left hand. Has a splint he wears during the night. Takes meds in apple sauce. Follow up:
--- NOTE | 2016-11-12 10:53 | NUR ---
Significant Event:No changes in assessment from previous day. Pt can stil be easily distracted from activity he is doing. Expresses needs well, uses call lt for needs maribel when is not here. She has been here @ long intervals since am meal. AFO in left shoe for support during transfers. 1 assist transfer with 2 assist needed sometimes @ toliet. Continue to reposition pt every 2 hours, monitor cocyx area, which occurs during the day with therapy and frequent calls. Takes meds whole in applesauce. Pt has been pleasant and cooperative with plan of care. Follow up:pain control, edema glove on during the day. Topical rub for discomfort.
--- NOTE | 2016-11-12 11:53 | NUR ---
D: TR progress note for 11/12/16. I: Pt seen for 3 units at 1001 for community integration skills building, functional transfers, and safety awareness. R: Pt seen for functional skills building working on mobility, safety, scanning and functional transfers to increase mobility in anticipation for discharge back into community with family. Pt given visual demonstration and verbal instructions on proper technique for car transfers prior to pt completing them. Pt transferred sit > stand from WC min assist, ambulated with QC 4 feet to/from vehicle CGA > min assist and transferred in/out of vehicle min assist with max cues for LLE management with seat surface adapted using trash bag to ease task. Pt tolerated ride with no C/o pain, discomfort or problems with nausea. P: Will continue to see to address goals and plan of care.
--- NOTE | 2016-11-13 04:34 | NUR ---
Significant Event: Patient is alert and orientd forgetfull at times. VSS. Up 1-2 assist scoot transfers. Denies pain most of the time. Voids per urinal during HS, voids frequent small amts. Good oral intake. Left side effected, Wears sling and isotoner glove to his left arm when up and a splint while in be. AFO to his left shoe, when up. Takes meds whole in apple sauce. Follow up:
--- NOTE | 2016-11-13 17:09 | NUR ---
Significant Event: Alert and oriented x 3. Forgetful at times. Up with 1A scoot tranfer. Denies pain. Left arm flaccid. Sling to left arm when up. Afo to left leg. Takes meds whole in applesauce. present this shift. One incontinent episode of urine. Isotoner glove to left arm. Uses call light appropriately. Cooperative with cares. Follow up:
--- NOTE | 2016-11-14 05:20 | NUR ---
Alert and oriented. Calls for assistance, but had two incont episodes last night. Reports sleeping soundly and not waking up in time. Very apologetic and cooperative with cares. Refused pain and sleeping pills last night. Kept arm splint on for 9 hrs, removed at 0400. Vital signs all wnl. Is one assist scoot transfer to and from wheelchair without difficulty.
--- NOTE | 2016-11-14 16:13 | NUR ---
Significant Event: Alert and oriented. Forgetful at times. Up with 1A scoot transfer. Denies pain. Left arm flacid. Patient seems very down today. Expresses that he is nervous about the senior living transition. Some nausea before lunch. Two tums given. Continent of bowel and bladder this shift. Cooperative with cares. Follow up:
--- NOTE | 2016-11-15 04:51 | NUR ---
Alert and oriented. Forgetful towards morning. Calls for assist as needed. Only one small spill of urinal tonight, early in shift. Does well when awakened to void every 2 hrs or so. Very tired and was to bed early. slept well tonight. Denied need for pain or sleeping pills.
[2016-11-15 05:53] LABS: ALK PHOS 50 IU/L (33-138); ALT 19 IU/L (12-78); ANION GAP 11.9 (10.0-19.0); AST 13 IU/L (10-40); BLOOD UREA NITROGEN 13 mg/dL (6-24); CALCIUM 8.4 mg/dL (8.5-10.5); CHLORIDE 105 mMol/L (96-110); CO2 28 mMol/L (22-32); CREATININE 1.1 mg/dL (0.6-1.3); ESTIMATED GFR (MDRD EQUATION) > 60; POTASSIUM 3.9 mMol/L (3.7-5.1); SODIUM 141 mMol/L (135-145); TOTAL PROTEIN 6.3 g/dL (6.0-8.4)
[2016-11-15 05:58] LABS: TOTAL BILIRUBIN 0.4 mg/dL (0.0-1.5)
--- NOTE | 2016-11-15 14:50 | NUR ---
Significant Event: A/0 X 3, DENIES PAIN TODAY, 1 ASSIST SCOOT TRANSFER TO TOILET AND BED/WHEEL CHAIR, PT/OT SERVICES, EDEMA GLOVE TO L)HAND, L)ARM SLING WITH TRANSFERS ON. HERE AT BEDSIDE. Follow up:
--- NOTE | 2016-11-15 22:30 | NUR ---
Significant Event: Patient alert but forgetful at times. 1 assist scoot transfer. Left sided weakness. Uses urinal at night. Follow up:
--- NOTE | 2016-11-16 04:31 | NUR ---
Significant Event: Pt A&O, is labile at times. Did have a large incontinent void with total bed change. Personal blanket does need to be washed. Is a x1 assist scoot-transfer, does well. Does need to be woken up every 2-3 hours for urinal usage. Denied pain overnight. VSS, remains on RA. Edema glove to Lt hand and Lt arm sling with transfers on. Does prefer to have socks left on while in bed. Follow up:
--- NOTE | 2016-11-16 14:10 | NUR ---
Significant Event:PATIENT ALERT AND ORIENTED THIS SHIFT. VSS. TRANSFERS WITH 1 ASSIST, GAIT BELT SCOOT TRANSFER. IS WORKING ON AMBULATING. PLANS FOR DC TOMORROW. HAS DENIED PAIN THIS SHIFT. MONOTONE VOICE. WORKING WITH THERAPIES AND TOLEATING WELL. NO OTHER COMPLAINTS. Follow up:
--- NOTE | 2016-11-16 14:56 | NUR ---
D: TR Progress Note for 11/16/16. I: Pt seen for 2 units at [facility] for leisure education, coping strategies, functional transfers and discharge planning. R: Pt seen functional skills building working on use of leisure involvement to promote recovery and for coping with major life-style changes and to increase self awareness of options. Education and modeling done on use of leisure involvement and recreational activities at SNF for coping strategies and to assist with adjustment to new living environment along with rapport building to peers/staff plus to prompt recovery with education and demonstration done on multiple options including (pokeno, cards, bingo, etc.). Pt transferred sit > stand from WC CGA, pivoted to recliner with QC CGA and transferred into chair CGA with cues for LLE management and safety. P: Will discharge to SNF tomorrow, 11/17/16.
--- NOTE | 2016-11-17 03:22 | NUR ---
Significant Event: A&Ox3, VSS on room air. Patient refused left hand splint during night. Voids per urnial, INC/spilling at times. 1PA scoot transfer to wheel chair. Patient states he's anxious about leaving. Repositioned PRN. Follow up: Transfering/Leaving today
--- NOTE | 2016-11-17 09:15 | NUR ---
Significant Event:Pt to be discharged today @ approx. 0930 to [facility]. Pt to ride in facility van to location. Pt reported and noc nurse that he did not sleep well last noc, anticipation of discharge today. Pt refused his left hand splint last noc. Left arm sling on this am, isotoner glove. Pt alert and orientated this am, sometimes can be forgetful. Transfers with 1 assist scoot method, requires support on left side as he will lean to the left @ times. Has been ambulating with therapy. Pt uses bathroom during the day and urinal @ noc, has occasional spill when uses by self. Repositioned every 2 hours. Pt expresses needs well, in monotone voice. Wears glasses when up. AFO brace in shoe for left lower leg. Pt likes his meds whole with applesauce. Pt occasionally request Tylnol or pain pill for left shoulder discomfort. Kate good support for pt, and usually available during the day. Kate packed majority of possessions and took, with just a few remaining items to take this am. Pt has been pleasant and cooperative with plan of care. pack train driver here, and pt . pt ready to go, will dicharge to tanker truck driver for transfer to [facility] [place]. No PRN meds given this am, only scheduled am meds up to 0900. Follow up:discharge to [place] swing [facility].
--- NOTE | 2016-11-18 15:15 | NUR ---
D: Pack Changer Team Conference Follow up for 11/16/16 and Discharge Plan for 11/17/16 I: Input from patient/family R: Met with: patient, family, Justine Rudd COMMUNITY HEALTH PROGRAM REPRESENTATIVE Discussed rehab plan, patient progress, discharge plan and estimated length of stay of d/c planned to [facility] on 11/17/16 Patient/Family Preference: patient and are in agreement. Anticipated discharge disposition: [facility] in [place], [place]. Education completed: Education was completed prior to d/c. Assessment/Recommendation: Team is in agreement with d/c on 11/17/16. P: Case Coordination: Tanner is a 76 year old man from [place], [place] admitted after a stroke. He is discharging to [facility] on 11/17/16. ID screen completed. Will call patient next week to see how he is doing post discharge.
== END 2016-11-17 09:35 | DRG 56 ==
LOC: GIRP 10:01
PROVIDERS: ADMIT Physical Medicine & Rehabilitation
PROC: F07Z9ZZ Gait Training/Functional Ambulation Treatment (ICD-10-PCS; principal; 2016-10-08)
PROC: F06Z6ZZ Communicative/Cognitive Integration Skills Treatment (ICD-10-PCS; principal; 2016-10-08)
PROC: F08Z4ZZ Home Management Treatment (ICD-10-PCS; principal; 2016-10-08)
PROC: 3E0U33Z Introduction of Anti-inflammatory into Joints, Percutaneous Approach (ICD-10-PCS; 2016-10-11)
DX: I69.354 Hemiplegia and hemiparesis following cerebral infarction affecting left non-dominant side (principal); G93.40 Encephalopathy, unspecified; J44.9 Chronic obstructive pulmonary disease, unspecified; I69.10 Unspecified sequelae of nontraumatic intracerebral hemorrhage; E44.1 Mild protein-calorie malnutrition; I10 Essential (primary) hypertension; I25.10 Atherosclerotic heart disease of native coronary artery without angina pectoris; F32.9 Major depressive disorder, single episode, unspecified; E78.5 Hyperlipidemia, unspecified; Z95.1 Presence of aortocoronary bypass graft; M19.012 Primary osteoarthritis, left shoulder; Z79.82 Long term (current) use of aspirin; R05 Cough
CPT/HCPCS: J1040; J1650